=== PATIENT | female | born 1990 | race Caucasian/White ===

== ENCOUNTER → 2018-01-29 | Outpatient (CLI) | payer OTHER ==
[~2018-01-29] MED LIST: AMPI500C9 PO; FERR325T5 PO; MTR600X PO; OXYC-57 PO; PRENTAB26 PO
== END | disposition home or self-care (01) ==
LOC: C.LABSPEC 11:13
PROVIDERS: ATTEND Obstetrics & Gynecology
DX: O34.219 Maternal care for unspecified type scar from previous cesarean delivery (principal)

== ENCOUNTER → 2018-02-05 | Outpatient (CLI) | payer OTHER | END | disposition home or self-care (01) | LOC: C.PAPS 13:44 | PROVIDERS: ATTEND Obstetrics & Gynecology | DX: Z12.4 Encounter for screening for malignant neoplasm of cervix (principal) ==

== ENCOUNTER → 2018-02-05 | Outpatient (CLI) | payer OTHER ==
[2018-02-05 12:27] LABS: BASO % 0.3 %; BASO ABS # 0.03 K/uL (0-0.2); EOS % 8.5 %; HEMATOCRIT 37.3 % (37-47); HEMOGLOBIN 12.8 g/dL (12.0-16.0); IG# 0.04 K/uL (0.00-0.02); LYMPH % 15.2 %; MEAN CORPUSCULAR HEMOGLOBIN 32.2 pg (25-34); MEAN CORPUSCULAR HGB CONC 34.3 g/dl (32-36); MEAN PLATELET VOLUME 10.8 fL (7.4-10.4); MONO % 6.5 %; MONO ABS # 0.77 K/uL (0.11-0.59); NEUT % 69.2 %; NEUT ABS # 8.17 K/uL (1.4-6.5); PLATELET COUNT 243 K/uL (130-400); RED CELL DISTRIBUTION WIDTH CV 12.6 % (11.5-14.5); RED CELL DISTRIBUTION WIDTH SD 42.8 fL (36.4-46.3); WHITE BLOOD COUNT 11.81 K/uL (4.8-10.8)
[2018-02-05 12:45] LABS: ALBUMIN 3.5 gm/dl (3.4-5.0); ALT/SGPT 22 U/L (12-78); AST/SGOT 9 U/L (15-37); BLOOD UREA NITROGEN 9 mg/dl (7-18); CALCIUM 8.6 mg/dl (8.5-10.1); CARBON DIOXIDE 26 mmol/L (21-32); GLUCOSE 86 mg/dl (70-99); POTASSIUM 3.5 mmol/L (3.5-5.1); SODIUM 138 mmol/L (136-145); URIC ACID 2.5 mg/dl (2.6-7.2)
[2018-02-05 12:47] LABS: ALKALINE PHOSPHATASE 50 U/L (45-117); TOTAL PROTEIN 7.1 gm/dl (6.4-8.2)
== END | disposition home or self-care (01) ==
LOC: C.LAB1850 10:58
PROVIDERS: ATTEND Obstetrics & Gynecology
DX: O34.219 Maternal care for unspecified type scar from previous cesarean delivery (principal); Z87.59 Personal history of other complications of pregnancy, childbirth and the puerperium; Z3A.00 Weeks of gestation of pregnancy not specified

== ENCOUNTER → 2018-02-08 | Outpatient (CLI) | payer OTHER | END | disposition home or self-care (01) | LOC: C.LAB1850 13:05 | PROVIDERS: ATTEND Obstetrics & Gynecology | DX: Z87.59 Personal history of other complications of pregnancy, childbirth and the puerperium (principal); O36.1110 Maternal care for Anti-A sensitization, first trimester, not applicable or unspecified ==

== ENCOUNTER → 2018-02-16 | Outpatient (CLI) | payer OTHER | END | disposition home or self-care (01) | LOC: C.LAB1850 12:01 | PROVIDERS: ATTEND Obstetrics & Gynecology | DX: Z34.01 Encounter for supervision of normal first pregnancy, first trimester (principal) ==

== ENCOUNTER 2021-08-30 18:07 | Observation (INO) ==
[2021-08-30 19:38] LABS: Protein Creatinine Ratio Urine 0.1 (0-0.2); Total Protein Urine Random 14.4 mg/dl (0-11.9)
--- NOTE | 2021-08-30 20:38 | History & Physical Report ---
Date of Service August 30, 2021 Assessment & Plan (1) Insulin controlled gestational diabetes mellitus (GDM) during : (2) Maternal care for other isoimmunization, unspecified trimester, not applicable or unspecified: (3) History of HELLP syndrome, currently : Plan: Patient advised of findings thus far. No clear cut diagnosis. Not meeting bp criteria but this could be atypical presentation of preeclampsia/HELLP. Will start 24hr urine. serial bps. repeat labs at 8hr from previous. fhts categ 1. keep npo until next labs back. then if stable may consider feed and then npo after midnight. Addendum: labs stable. repeat in 8hr. can have intermittent monitoring. change to obs status. parameters to complain reviewed. US of GB discussed polyps, no stones. UA pending. currently denies pain. will allow po and then keep npo after MN. check bsg one hr from meal and if >120 dose 50% of her usual nph. Significant time >70min spent by pt bedside, evaluation & coord of care. review of studies. History of Present Illness Chief Complaint: right upper back pain, some ruq pain Primary Care Provider: NO PCP 30yo at 36+wks jose presents to L&D with intermittent ruq and right upper back pain and elevated LFTS in background history of HELLP syndrome with prior . She notes less pain today then yesterday. Same thing happened on monday compared to monday. Had labs ordered that she did on sat, when they returned with elevated lfts, she was brought to L&D for evaluation by my partner and lfts actually improved. Of note BPs have been normal, with no significant proteinuria. Then today was to return to office and LFTs elevated again. Again only intermittent right flank pain, less so in front on right side per pt. No carrillo, no visual change. No worsening swelling. BPs normal. Denies n/v. Moving bowels, using zofran daily to keep from nausea. PNC c/b 1. Prior HELLP syndrome at 39+wks , taking baby ASA daily 2. Prior c/s x 2--for planned rpt c/s at 38wks due to isoimmunization in 3. Isoimmunization in , Anti G and Anti C, following with [facility] dopplers every other wk with [facility], have been normal. 4. GDM on insulin, 20 u NPH qhs, last u/s was aga and nl ac% PNL Rh pos, RI, GBS not done Allergies Allergy/AdvReac Type Severity Reaction Status Date / Time No Known Allergies Allergy Verified 08/30/21 14:53 Home Medications Medication Instructions Recorded Confirmed Type vit no.95-ferrous 1 tab PO QPM 08/27/18 08/30/21 History fumarate 28 mg-folic acid 800 mcg tablet () ondansetron HCl 4 mg tablet 4 mg PO Q6H PRN #20 tab 06/10/21 08/30/21 Rx (Zofran) acetone (urine) test (Ketone Urine #50 ea 07/22/21 08/30/21 Rx Test) blood sugar diagnostic (OneTouch #150 ea 07/22/21 08/30/21 Rx Verio test strips) blood-glucose meter (OneTouch #1 ea 07/22/21 08/30/21 Rx Verio Flex meter) lancets 33 gauge (OneTouch Delica #150 ea 07/22/21 08/30/21 Rx Plus Lancet) pen needle, diabetic 32 gauge x #50 ea 07/29/21 08/30/21 Rx 5/32" (BD Ultra-Fine Pat Pen Needle) aspirin 81 mg chewable tablet 81 mg PO DAILY 08/28/21 08/30/21 History insulin NPH isoph U-100 human 100 20 unit SUBCUT QPM 08/30/21 08/30/21 History unit/mL (3 mL) subcutaneous pen (Novolin N Flexpen) Patient History Medical History History of HELLP syndrome, currently Symptomatic for 1-2 weeks prior to surgery Hx of pre-eclampsia in prior , currently 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 Missed Pre-eclampsia, severe, antepartum Toxemia in (12/26/13) Surgical History H/O section Hx of section Hx of wisdom tooth extraction Family History Mother Kidney disease Grandfather (Maternal) Myocardial infarction Grandmother (Maternal) Ovarian cancer Social History (Updated 08/30/21 @ 18:19 by Munira Billingsley RN) Smoking Status: Never smoker Hx Alcohol Use: No Hx Substance Use: No Preferred Language: Malay Communication Ability: Effective Community Health Consultant Required: No Beliefs That Will Affect Care: None marital status: marital status details: Dominick (29) [phone] Current Living Situation: Spouse Current Living Situation Comment: Lives with , 2 sons and 2 dogs current occupational status: unemployed Other Information That Helps Us Care for You: No Feels Safe at Home: Yes Safety Concerns: Feels Safe At This Time Childhood Exposure to Second-Hand Smoke: No Do you think of yourself as: straight/heterosexual Gender Identity: Female Assistive Devices: None Review of Systems as per Subjective / HPI Physical Exam Constitutional: WD/WN, vitals as above Respiratory: normal respiratory effort, lungs clear to auscultation Cardiovascular: Rate/Rhythm: regular rate and regular rhythm Gastrointestinal (Abdomen): soft gravid nt no ruq tend or epig tenderness. Musculoskeletal: no edema nontender calves Neurologic: grossly normal Psychiatric: A+Ox3, euthymic affect Genitourinary: + CVA tenderness (right ?) OB Exam Monitor Tracing: + external FHT monitor used, + external uterine monitor used (irreg), + category I and + normal FHT variability Results & Data ([facility]) Vital Signs (Past 12 Hours) Vital Signs Temp Pulse Resp BP 08/30/21 19:11 76 131/88 08/30/21 18:32 98.1 F 20 08/30/21 18:12 98.1 F 70 20 119/67 Coding Level of Care Code INT OBSERVATION CARE 70M LVL 3 Diagnoses Insulin controlled gestational diabetes mellitus (GDM) during O24.414 Maternal care for other isoimmunization, unspecified trimester, not applicable or unspecified O36.1990 History of HELLP syndrome, currently O09.299
[2021-08-30 21:09] LABS: Hematocrit (blood only) 36.6 % (37-47); Hemoglobin 12.5 g/dL (12.0-16.0); Mean Corpuscular Hemoglobin 33.2 pg (25-34); Mean Corpuscular Hgb Conc 34.2 g/dL (32-36); Mean Corpuscular Volume 97.3 fL (80-100); Mean Platelet Volume 11.8 fL (7.4-10.4); Platelet Count 123 K/uL (130-400); RDW Coefficient of Variation 12.6 % (11.5-14.5); RDW Standard Deviation 44.3 fL (36.4-46.3); Red Blood Count 3.76 M/uL (4.2-5.4); White Blood Count 10.88 K/uL (4.8-10.8)
--- NOTE | 2021-08-30 21:29 | Ultrasound Report ---
US liver HISTORY: 30 years-old Female ruq pain, at 36wks, elevated lfts acute right upper quadrant abdominal pain COMPARISON: Pelvic ultrasound 08/19/2021 TECHNIQUE: Multiple real-time sonographic images of the abdominal right upper quadrant were obtained assessing grayscale appearance and color flow FINDINGS: The visualized pancreas is unremarkable. The liver is within normal limits measuring 13.6 cm in lengt h. Numerous gallbladder polyps measure up to 5 mm. No shadowing cholelithiasis, wall thickening or pe richolecystic fluid. Sonographic Harmon sign reported as negative. Normal common bile duct, 5 mm. The imaged right kidney is unremarkable without hydronephrosis. IMPRESSION: 1. Numerous gallbladder polyps measure up to 5 mm. 6 month follow-up ultrasound recommended. 2. No cholelithiasis or sonographic evidence of acute cholecystitis. 3. No biliary ductal dilation. ACT 112: Negative or not required by law. The above report was generated using voice recognition software. It may contain grammatical, syntax o r spelling errors. Electronically signed by: Jagjit Spaulding M.D. 08/30/2021 9:28 PM
[2021-08-30 22:09] LABS: Alanine Aminotransferase 111 U/L (12-78); Albumin Level 2.3 gm/dl (3.4-5.0); Amylase 37 U/L (25-115); Aspartate Aminotransferase 76 U/L (15-37); Bilirubin Direct < 0.1 mg/dl (0-0.2); Blood Urea Nitrogen 8 mg/dl (7-18); Calcium 8.2 mg/dl (8.5-10.1); Carbon Dioxide 22 mmol/L (21-32); Chloride 109 mmol/L (98-107); Creatinine Clr Calc Pharmacy 126.8 ml/min; Est GFR (African American) 138.5 ml/min; Est GFR (Non-African American) 119.5 ml/min; Glucose 69 mg/dl (70-99); Lipase 62 U/L (73-393); Potassium 3.7 mmol/L (3.5-5.1); Sodium 138 mmol/L (136-145)
[2021-08-30 22:12] LABS: Albumin Globulin Ratio 0.6 (0.9-2); Alkaline Phosphatase 113 U/L (45-117); Bilirubin,Total 0.5 mg/dl (0.2-1); Globulin 3.8 gm/dl (2.5-4.0); Total Protein 6.1 gm/dl (6.4-8.2)
[2021-08-30 22:15] LABS: Appearance Urine Clear (Clear); Bilirubin Urine Negative (Negative); Blood Urine Negative (Negative); Color Urine Yellow; Glucose Urine UA Negative (Negative); Ketones Urine Negative (Negative); Leukocyte Esterase Urine Negative (Negative); Nitrite Urine Negative (Negative); Protein Urine Negative (Negative); Specific Gravity Urine 1.015 (1.000-1.030); Urobilinogen Urine Negative (Negative)
--- NOTE | 2021-08-30 22:22 | Obstetrical Progress Note ---
Date of Service August 30, 2021 Assessment & Plan (1) Right upper quadrant abdominal pain: (2) Insulin controlled gestational diabetes mellitus (GDM) during : (3) Maternal care for other isoimmunization, unspecified trimester, not applicable or unspecified: (4) History of HELLP syndrome, currently : (5) Previous delivery affecting , antepartum: (6) 36 weeks gestation of : Plan: nst reactive Subjective neglected to code for nst. Results & Data ([facility]) Vital Signs (Past 12 Hours) Vital Signs Temp Pulse Resp BP 08/30/21 19:11 76 131/88 08/30/21 18:32 98.1 F 20 08/30/21 18:12 98.1 F 70 20 119/67 Diagnostic Findings nst reactive. no labor. PG Care Time/CCT Total # of Minutes Spent Total Time Spent with Patient: Total time spent is greater than 50% in coordination of care (as documented) at patient's floor/unit and/or counseling patient: Coding Level of Care Code None Diagnoses Right upper quadrant abdominal pain R10.11 Insulin controlled gestational diabetes mellitus (GDM) during O24.414 Maternal care for other isoimmunization, unspecified trimester, not applicable or unspecified O36.1990 History of HELLP syndrome, currently O09.299 Previous delivery affecting , antepartum O34.219 36 weeks gestation of Z3A.36 CPT Codes Misx Procedure Codes - 58898 NST: 98227 NST ([id number]) WINDOW CLEANER Miscellaneous Codes Misx Procedure Codes 71848 NST
[2021-08-30] MEDS ORDERED: CARBOHYDRATES FOR HYPOGLYCEMIA PO PRN (22:45)
[2021-08-30] MEDS ORDERED: GLUCAGON FOR INJ 1 MG VIAL IM PRN (22:45)
[2021-08-30] MEDS ORDERED: GLUCOSE 10 TABS/TUBE PO PRN (22:45)
[2021-08-30] MEDS ORDERED: DEXTROSE 50% 50 ML SYRINGE IV PRN (22:45)
[2021-08-30] MEDS ORDERED: GLUCOSE 40% GEL 15 GM TUBE PO PRN (22:45)
[2021-08-31 05:53] LABS: Hematocrit (blood only) 36.3 % (37-47); Hemoglobin 12.5 g/dL (12.0-16.0); Mean Corpuscular Hemoglobin 33.5 pg (25-34); Mean Corpuscular Hgb Conc 34.4 g/dL (32-36); Mean Corpuscular Volume 97.3 fL (80-100); Mean Platelet Volume 12.2 fL (7.4-10.4); Platelet Count 113 K/uL (130-400); Platelet Estimate Decreased (Normal); RDW Coefficient of Variation 12.6 % (11.5-14.5); RDW Standard Deviation 44.8 fL (36.4-46.3); Red Blood Count 3.73 M/uL (4.2-5.4); White Blood Count 9.99 K/uL (4.8-10.8)
[2021-08-31 06:01] LABS: Albumin Level 2.2 gm/dl (3.4-5.0); BUN Creatinine Ratio 14.1 (10-20); Bilirubin Direct 0.1 mg/dl (0-0.2); Calcium 8.2 mg/dl (8.5-10.1); Creatinine Clr Calc Pharmacy 133.1 ml/min; Est GFR (African American) 140.8 ml/min; Est GFR (Non-African American) 121.5 ml/min; Potassium 3.7 mmol/L (3.5-5.1)
[2021-08-31 06:04] LABS: Albumin Globulin Ratio 0.6 (0.9-2); Bilirubin,Total 0.5 mg/dl (0.2-1); Globulin 3.7 gm/dl (2.5-4.0); Total Protein 5.9 gm/dl (6.4-8.2)
[2021-08-31] MEDS ORDERED: oxyCODONE/ACETAMINOPHEN 5mg/325mg TAB PO STA (06:58)
--- NOTE | 2021-08-31 07:04 | Obstetrical Progress Note ---
Date of Service August 31, 2021 Assessment & Plan (1) 36 weeks gestation of : (2) Right upper quadrant abdominal pain: (3) Insulin controlled gestational diabetes mellitus (GDM) during : (4) Maternal care for other isoimmunization, unspecified trimester, not applicable or unspecified: (5) History of HELLP syndrome, currently : (6) Previous delivery affecting , antepartum: Plan: pt with new onset pain, she will try dose of percocet to help. labs reviewed, plts decreased. lfts slightly higher. bps normal. will keep npo. bsg this am is normal. can try some warm heat to back. will likely need to d/w mfm her case. Subjective pt slept through night and woke up about 5am with the pain she has been having. its on her back to the right of spine, at level of scapulae. does not change with movement. not tender to touch, is deep. no carrillo or visual change. no ruq or epig pain. no n/v. Review of Systems Constitutional: as per Subjective / HPI Physical Exam Constitutional: WD/WN, vitals as above Musculoskeletal: area of back is where pain is noted in hpi Genitourinary: OB Exam Monitor Tracing: + external FHT monitor used, + external uterine monitor used (no ctx), + category I and + normal FHT variability Results & Data ([facility]) Vital Signs (Past 12 Hours) Vital Signs Temp Pulse Resp BP 08/31/21 03:49 97.9 F 67 16 98/60 L 08/31/21 00:34 98.1 F 71 18 121/67 08/30/21 19:11 76 131/88 PG Care Time/CCT Total # of Minutes Spent Total Time Spent with Patient: Total time spent is greater than 50% in coordination of care (as documented) at patient's floor/unit and/or counseling patient: Coding Level of Care Code None Diagnoses 36 weeks gestation of Z3A.36 Right upper quadrant abdominal pain R10.11 Insulin controlled gestational diabetes mellitus (GDM) during O24.414 Maternal care for other isoimmunization, unspecified trimester, not applicable or unspecified O36.1990 History of HELLP syndrome, currently O09.299 Previous delivery affecting , antepartum O34.219
--- NOTE | 2021-08-31 08:57 | Obstetrical Progress Note ---
Date of Service August 31, 2021 Assessment & Plan (1) 36 weeks gestation of : (2) Elevated LFTs: (3) Insulin controlled gestational diabetes mellitus (GDM) during : (4) History of HELLP syndrome, currently : (5) Maternal care for other isoimmunization, unspecified trimester, not applicable or unspecified: Plan: Called and spoke to [facility] fellow Molly Covarrubiasrosasalima. reviewed course and findings thus far. they do not feel this an atypical presentation of preeclampsia at this point. BPs normal, urine protein normal. they rec checking covid test as they have seen these type of abnl in that setting. also rec GI consult to just see if they think at all this a presentation of hepatitis. if GI eval not leaning in that direction, then may lean toward an ob cause and can offer steroids, whilst monitoring labs and her overall picture. all d/w oncoming md and with patient. she verbalized understanding. >30min spent, bedside, review of findings, coord of care, contacting [facility]. Subjective pt resting. says the percocet helped her pain as she did fall asleep. she says was up all night due to the pain. no other sx. reviewed discussion with tootie [facility], Santino Coombs. Review of Systems Constitutional: as per Subjective / HPI Physical Exam Constitutional: WD/WN, vitals as above Genitourinary: OB Exam Monitor Tracing: + external FHT monitor used, + external uterine monitor used (no ctx), + category I (nst reactive) and + normal FHT variability Results & Data ([facility]) Vital Signs (Past 12 Hours) Vital Signs Temp Pulse Resp BP 08/31/21 07:17 98.1 F 73 20 120/56 L 08/31/21 03:49 97.9 F 67 16 98/60 L 08/31/21 00:34 98.1 F 71 18 121/67 PG Care Time/CCT Total # of Minutes Spent Total Time Spent with Patient: Total time spent is greater than 50% in coordination of care (as documented) at patient's floor/unit and/or counseling patient: Coding Level of Care Code 01117 Subseq Obs Care Lvl 2 Diagnoses 36 weeks gestation of Z3A.36 Elevated LFTs R79.89 Insulin controlled gestational diabetes mellitus (GDM) during O24.414 History of HELLP syndrome, currently O09.299 Maternal care for other isoimmunization, unspecified trimester, not applicable or unspecified O36.1990 CPT Codes Misx Procedure Codes - 57188 NST: 67250 NST ([id number]) DIRECTOR ERP Miscellaneous Codes Misx Procedure Codes 73394 NST
[2021-08-31] MEDS ORDERED: LACTATED RINGER'S 1,000 ML IV SCH (09:30)
[2021-08-31] MEDS ORDERED: DEXTROSE 5% 1,000 ML IV SCH (10:15)
--- NOTE | 2021-08-31 11:02 | Gastrointestinal Consultation ---
Date of Consultation August 31, 2021 Assessment & Plan (1) Elevated LFTs: (2) Right upper quadrant abdominal pain: (3) History of HELLP syndrome, currently : From a GI perspective, there are no acute laboratory or imaging studies to support a diagnosis of an acute gallbladder or hepatitis concern. Hep A, B, C studies are ordered and pending. COVID19 testing is negative. I agree with the plan of care in place by the obstetrical team. I would advise continued monitoring of LFTs, platelets, blood pressure, & urine. Patient is not experiencing any heartburn, reflux, nausea, or vomiting at present so I do not know that there would be a benefit of a trial of PPI therapy, however if symptoms worsen, could consider adding that supportively. Did discuss with patient a non-emergent, outpatient surgical evaluation post- to discuss possible elective cholecystectomy given numerous gallbladder polyps noted on ultrasound imaging. Supervising Physician Co-Signing Physician Notes Agree with MISTI Tapia as above Abd: Soft, gravid, Tender RUQ, +BS No evidence of acute viral etiology, though viral serologies pending Most likely HELLP syndrome, and therefore would recommend transfer to [facility] with [facility] History of Present Illness Attending Physician: Irina Cook MD, FACOG History of Present Illness Patient is a 30 yo female who is presently 36 weeks . She presented to L&D with complaints of RUQ and right upper back pain that had been ongoing intermittently for several days. She has a history of HELLP syndrome with her previous and recognized similar symptoms. She is a gestational diabetic and has been monitoring her blood sugars and utilizing insulin. Her current platelets are 113. She had LFTs that show a mild elevation. AST of 98 and ALT of 134. An abdominal US indicated gallbladder polyps, but no evidence of an acute gallbladder, hepatomegaly, hepatitis, or other acute liver issue. Hep A, B, C studies are pending. She denies any history of liver disease personally or in the family. She denies recent febrile illness, viral illnesses, Tylenol use, and is COVID negative. She denies jaundice or scleral icterus. [facility]aternal [facility] was consulted given concerns for an atypical presentation of HELLP Syndrome. They advised a GI consult to assess for hepatitis. Patient reports some improvement temporarily of her RUQ pain. She denies nausea, vomiting, worsening heartburn or reflux, or changes in her bowel pattern. Allergies Allergy/AdvReac Type Severity Reaction Status Date / Time No Known Allergies Allergy Verified 08/30/21 14:53 Home Medications Medication Instructions Recorded Confirmed Type vit no.95-ferrous 1 tab PO QPM 08/27/18 08/30/21 History fumarate 28 mg-folic acid 800 mcg tablet () ondansetron HCl 4 mg tablet 4 mg PO Q6H PRN #20 tab 06/10/21 08/30/21 Rx (Zofran) acetone (urine) test (Ketone Urine #50 ea 07/22/21 08/30/21 Rx Test) blood sugar diagnostic (OneTouch #150 ea 07/22/21 08/30/21 Rx Verio test strips) blood-glucose meter (OneTouch #1 ea 07/22/21 08/30/21 Rx Verio Flex meter) lancets 33 gauge (OneTouch Delica #150 ea 07/22/21 08/30/21 Rx Plus Lancet) pen needle, diabetic 32 gauge x #50 ea 07/29/21 08/30/21 Rx 5/32" (BD Ultra-Fine Pat Pen Needle) aspirin 81 mg chewable tablet 81 mg PO DAILY 08/28/21 08/30/21 History insulin NPH isoph U-100 human 100 20 unit SUBCUT QPM 08/30/21 08/30/21 History unit/mL (3 mL) subcutaneous pen (Novolin N Flexpen) Patient History Medical History (Updated 08/31/21 @ 08:50 by Irina Cook MD, FACOG) History of HELLP syndrome, currently Symptomatic for 1-2 weeks prior to surgery Hx of pre-eclampsia in prior , currently 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 Missed Pre-eclampsia, severe, antepartum Toxemia in (12/26/13) Surgical History H/O section Hx of section Hx of wisdom tooth extraction Family History Mother Kidney disease Grandfather (Maternal) Myocardial infarction Grandmother (Maternal) Ovarian cancer Social History (Updated 08/30/21 @ 18:19 by Munira Billingsley RN) Smoking Status: Never smoker Hx Alcohol Use: No Hx Substance Use: No Preferred Language: Malawian Communication Ability: Effective Press Operator Heavy Duty Required: No Beliefs That Will Affect Care: None marital status: marital status details: Dominick (29) [phone] Current Living Situation: Spouse Current Living Situation Comment: Lives with , 2 sons and 2 dogs current occupational status: unemployed Feels Safe at Home: Yes Childhood Exposure to Second-Hand Smoke: No Do you think of yourself as: straight/heterosexual Gender Identity: Female Assistive Devices: None Review of Systems Constitutional: no fever and no chills Respiratory: no cough and no dyspnea Cardiovascular: no chest pain Gastrointestinal: no abdominal pain (RUQ pain improved), no bloating, no heartburn, no nausea, no coffee ground emesis, no hematemesis, no change in bowel habits, no change in stools, no constipation, no diarrhea/loose stools, no blood in stools and no melena Integumentary: no yellowing of the skin Psychiatric: no problem reported Physical Exam Constitutional: WD/WN, vitals as above Eyes: + anicteric sclerae Respiratory: normal respiratory effort, lungs clear to auscultation Cardiovascular: RRR, no murmur, no edema Extremities: no edema Gastrointestinal (Abdomen): no palpable hepatosplenomegaly; normal bowel sounds noted; no abdominal tenderness appreciated Musculoskeletal: Head/Neck/Chest: normocephalic Skin: no rashes, warm and dry no jaundice Psychiatric: A+Ox3, euthymic affect Results & Data ([facility]) Vital Signs (Past 12 Hours) Vital Signs Temp Pulse Resp BP 08/31/21 07:17 36.7 C 73 20 120/56 L 08/31/21 03:49 36.6 C 67 16 98/60 L 08/31/21 00:34 36.7 C 71 18 121/67 PG Care Time/CCT Total # of Minutes Spent Total Time Spent with Patient: Total time spent is greater than 50% in coordination of care (as documented) at patient's floor/unit and/or counseling patient: Coding Level of Care Code 94985 Inpt Consult Level 4 Diagnoses Elevated LFTs R79.89 Right upper quadrant abdominal pain R10.11 History of HELLP syndrome, currently O09.299
[2021-08-31 11:36] LABS: Hematocrit (blood only) 38.8 % (37-47); Hemoglobin 13.2 g/dL (12.0-16.0); Mean Corpuscular Hemoglobin 33.3 pg (25-34); Mean Platelet Volume 11.8 fL (7.4-10.4); Platelet Count 115 K/uL (130-400); RDW Coefficient of Variation 12.6 % (11.5-14.5); RDW Standard Deviation 45.4 fL (36.4-46.3); Red Blood Count 3.96 M/uL (4.2-5.4); White Blood Count 11.36 K/uL (4.8-10.8)
[2021-08-31 11:58] LABS: Albumin Level 2.3 gm/dl (3.4-5.0); BUN Creatinine Ratio 10.5 (10-20); Calcium 8.4 mg/dl (8.5-10.1); Creatinine Clr Calc Pharmacy 128.8 ml/min; Est GFR (African American) 139.3 ml/min; Est GFR (Non-African American) 120.2 ml/min; INR 0.9 (0.9-1.1); Potassium 3.8 mmol/L (3.5-5.1); Prothrombin Time 9.3 Seconds (9.0-12.0)
[2021-08-31 11:59] LABS: Bilirubin Direct 0.2 mg/dl (0-0.2)
[2021-08-31 12:00] LABS: Partial Thromboplastin Ratio 1.1; Partial Thromboplastin Time 27.7 Seconds (21.0-31.0)
[2021-08-31 12:01] LABS: Albumin Globulin Ratio 0.6 (0.9-2); Bilirubin,Total 0.6 mg/dl (0.2-1); Globulin 4.1 gm/dl (2.5-4.0); Total Protein 6.4 gm/dl (6.4-8.2)
--- NOTE | 2021-08-31 13:05 | Obstetrical Progress Note ---
Date of Service August 31, 2021 Assessment & Plan (1) Elevated LFTs: (2) 36 weeks gestation of : (3) Right upper quadrant abdominal pain: (4) Insulin controlled gestational diabetes mellitus (GDM) during : (5) Maternal care for other isoimmunization, unspecified trimester, not applicable or unspecified: (6) History of HELLP syndrome, currently : (7) Previous delivery affecting , antepartum: Plan: Lfts are increasing, but all other lab values are stable. Clinically stable as well. BPs not elevated. Discussed the situation again with JUDSON Selby at [facility], attending. She still does not believe there is an indication for delivery, cannot call HELLP with just the LFTs elevated and all else stable. Discussed that covid pcr was negative. Seen by GI and did not think it was a hepatitis picture, more likely Hellp, hepatitis panel pending. Several concerns about her remaining at our facility--blood product availability, only 2 dose packs of plts, unsure about when she will require delivery, possiblity of rapid deterioration of situation, uncertainty of diagnosis. Dr. Gallagher notes they would be happy to accept her in transfer given the uncertainty of the situation. I believe that is in the patient's best interest at this point. Discussed the situation with the patient and she is agreeable and understands. If it turns out not to be hellp and clinical situation improves, may come back. Patient is accepted by Dr. Giraldo and has a bed. [facility] at our hospital currently does not have ambulance service available to send the patient. We are working on getting her an ambulance from [facility] . If unavailable, may need to fly. Admission and Anticipated Discharge Date Admission Date: August 30, 2021 Subjective Patient is resting in bed. She notes dull pain in the RUQ/back. It is constant. Less painful than overnight. Slightly worse with movement. She denies carrillo, ruq pain, increased swelling. Notes some slight nausea but npo. Notes good fm. Lfts are elevated further this late am from 5am. plts are stable. reactive nst. Feeling good fm. Physical Exam Constitutional: WD/WN, vitals as above Gastrointestinal (Abdomen): soft, nt, nd, no ruq pain Psychiatric: A+Ox3, euthymic affect Results & Data ([facility]) Vital Signs (Past 12 Hours) Vital Signs Temp Pulse Resp BP 08/31/21 12:02 37 C 66 20 123/64 08/31/21 07:17 36.7 C 73 20 120/56 L 08/31/21 03:49 36.6 C 67 16 98/60 L PG Care Time/CCT Total # of Minutes Spent Total Time Spent with Patient: Total time spent is greater than 50% in coordination of care (as documented) at patient's floor/unit and/or counseling patient: Coding Level of Care Code D/C DAY MANAGEMENT >30 MINS Diagnoses Elevated LFTs R79.89 36 weeks gestation of Z3A.36 Right upper quadrant abdominal pain R10.11 Insulin controlled gestational diabetes mellitus (GDM) during O24.414 Maternal care for other isoimmunization, unspecified trimester, not applicable or unspecified O36.1990 History of HELLP syndrome, currently O09.299 Previous delivery affecting , antepartum O34.219
[2021-08-31] MEDS ORDERED: INSULIN HUMAN NPH SC SCH (21:00)
[2021-09-01 02:21] LABS: Hepatitis A Antibody IgM NON-REACTIVE (NON-REACTIVE); Hepatitis B Core Antibody IgM NON-REACTIVE (NON-REACTIVE)
== END 2021-08-31 15:21 | disposition short-term general hospital (02) ==
LOC: OPB 18:07 → 4S1 18:07

== ENCOUNTER 2024-02-02 11:15 | Inpatient (IN) ==
[2024-02-02] MEDS ORDERED: OXYTOCIN 30 UNITS/NSS 30 UNITS/500 ML BAG IV PRN (11:30)
[2024-02-02] MEDS ORDERED: LIDOCAINE 1% LOCAL 20 ML VIAL INFIL PRN (11:30)
--- NOTE | 2024-02-02 11:30 | History & Physical Report ---
Date of Service February 02, 2024 Assessment & Plan (1) Rubella non-immune status, antepartum: (2) Previous delivery affecting , antepartum: Plan: RCS today. (3) History of HELLP syndrome, currently : (4) Gestational diabetes mellitus (GDM) affecting , antepartum: Plan 33 y/o at 36w 6 d here for a c section due hx of help syndrome x2 with presentation of abnormal labs Admit to L&D monitoring Category 1 NPO, Labs To OR for History of Present Illness Primary Care Provider: Karmen Baker MD 33 y/o at 36w 6 d. Here for section. Patient had hx of HELLP syndrome x2. Complications with this include previous c section x3, Anti C, G, on current and GDM on insulin. Has been attending OB appointments regularly. Currently taking no medications. GBS negative , Rubella equivocal, BTG: A negative Contractions: none. Fluid or Blood loss: none Movement: active FHR baseline 130, moderate variability, accelerations present, decelerations absent Lab Results OB Labs: Blood Type A Negative 07/17/23 Antibody Screen POSITIVE A 12/05/23 Hemoglobin 12.6 g/dl (12.0-16.0) 12/05/23 Hematocrit 37.1 % (37.0-47.0) 12/05/23 Mean Corpuscular Volume 94.3 fL (80.0-100.0) 07/17/23 Platelet Count 215 K/uL (130-400) 07/17/23 Rubella IgG Antibody Equivocal (Immune) L 07/17/23 Rapid Plasma Reagin Nonreactive (Nonreactive) 07/17/23 Hepatitis B Surface Antigen Neg (Neg) 08/31/21 Hepatitis B Surface Antigen. NON-REACTIVE (NON-REACTIVE) 07/17/23 Hepatitis C Antibody (EIA) NON-REACTIVE (NON-REACTIVE) 07/17/23 HIV (1&2) Ab and P24 Ag, 4th Gener Neg (Neg) 02/10/21 HIV (1&2) Ag and Ab Confirmation NON-REACTIVE (NON-REACTIVE) 07/17/23 Glucose 1 Hour 50 gm Load 139 mg/dl (70-130) H 07/08/21 OB Optional Labs: Chlamydia trachomatis RNA Not Detected (NotDetected) 07/17/23 Neisseria gonorrhoeae RNA Not Detected (NotDetected) 07/17/23 Labs Reviewed: Declines genetics--mln declined afp Allergies Allergy/AdvReac Type Severity Reaction Status Date / Time No Known Allergies Allergy Verified 02/02/24 11:39 Home Medications Medication Instructions Recorded Confirmed Type [id number] 1 tab PO QAM 07/10/23 02/02/24 History [] pen needle, diabetic 32 gauge x #50 ea 08/25/23 01/29/24 Rx " (BD Ultra-Fine Pat Pen Needle) aspirin 81 mg tablet,delayed 81 mg PO DAILY 11/02/23 02/02/24 History release breast pump #1 ea 12/19/23 01/29/24 Rx ondansetron HCl 4 mg tablet 4 mg PO Q8H PRN nausea and 01/03/24 02/02/24 Rx vomiting #20 tabs diphenhydramine HCl 25 mg capsule 12.5 mg PO HS PRN Sleep 01/30/24 02/02/24 History (Unisom SleepMinis) Colace 1 tab PO DAILY 02/02/24 02/02/24 History insulin NPH isoph U-100 human 100 12 unit subcut QPM 02/02/24 02/02/24 History unit/mL (3 mL) subcutaneous pen (Novolin N FlexPen) Patient History Medical History 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, 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, G, current (OB following with monthly titers as well as MCA dopplers and NSTs); currently following with Medicine Gestational diabetes mellitus (GDM) affecting , antepartum HELLP syndrome (HELLP), unspecified trimester x2 Baseline 24 hr urine and labs WNL 1st at 39 weeks 3rd atypical presentation 36 weeks and 5 days per OB records (2020) Hx of pre-eclampsia in prior , currently With 1st per OB records Surgical History S/P dilation and curettage H/O section x3 Hx of wisdom tooth extraction Family History Mother Kidney disease Grandfather (Maternal) Myocardial infarction Grandmother (Maternal) Ovarian cancer Other No family history of adverse response to anesthesia Denies family history of Prostate cancer Breast cancer Colorectal cancer Social History Smoking Status: Never smoker Second Hand Exposure: No; Do You Dip or Chew Tobacco: No; Hx Alcohol Use: No Hx Substance Use: No Preferred Language: Chadian Communication Ability: Effective Undergraduate Internship Required: No Beliefs That Will Affect Care: None marital status: marital status details: Dominick Cortes [phone] Current Living Situation: Spouse and Family current occupational status: unemployed current occupation: homemaker Feels Safe at Home: Yes Safety Concerns: Feels Safe At This Time Childhood Exposure to Second-Hand Smoke: No Do you think of yourself as: straight/heterosexual Gender Identity: Female Assistive Devices: Contacts and Glasses Review of Systems All systems reviewed & are unremarkable except as noted in HPI & below Physical Exam Physical Exam: General: patient resting comfortably, NAD, non-toxic in appearance, AA&O x 4, answers questions appropriately. Skin: warm, dry, intact HEENT: NC/AT, anicteric sclera, conjunctiva without injection, moist mucus membranes Heart: +S1/S2, regular, no m/r/g Lungs: equal air entry bilaterally, no rales/rhonchi/wheezes Abd: +BS, soft, NT/ND, gravid uterus Ext: warm, no clubbing/cyanosis or edema Neuro: nonfocal, patient AA&O x 4, speech intact, no facial droop, moving all extremities on command. Results & Data Laboratory Results Laboratory Results - last 24 hr 02/02/24 11:39 WBC 10.17 RBC 3.84 L Hgb 12.4 Hct 36.1 L MCV 94.0 MCH 32.3 MCHC 34.3 RDW Std Deviation 43.4 RDW Coeff of Cecelia 12.7 Plt Count 129 L MPV 12.6 H Immature Gran % (Auto) 0.6 Neut % (Auto) 73.9 Lymph % (Auto) 18.4 [place] % (Auto) 6.6 Eos % (Auto) 0.2 Baso % (Auto) 0.3 Neut # (Auto) 7.52 H Lymph # (Auto) 1.87 [place] # (Auto) 0.67 H Eos # (Auto) 0.02 Baso # (Auto) 0.03 Immature Gran # (Auto) 0.06 Sodium 135 L Potassium 3.8 Chloride 106 Carbon Dioxide 22 Anion Gap 7 BUN 13 Creatinine 0.70 Est Cr Clr Drug Dosing Not Reportable Est GFR ( Amer) 131.0 Est GFR (Non-Af Amer) 113.0 BUN/Creatinine Ratio 18.6 Glucose 90 Calcium 8.9 Total Bilirubin 0.4 Direct Bilirubin 0.1 AST 49 H ALT 70 H Alkaline Phosphatase 102 Total Protein 6.0 Albumin 3.2 L Globulin 2.8 Albumin/Globulin Ratio 1.1 Blood Type A Negative Antibody Screen POSITIVE A Antibody Identification Pending Antibody ID Comment Pending Crossmatch See Detail Supervising Physician Co-Signing Physician Notes Resident Physician Supervision Note: I interviewed and examined the patient. Discussed with Dr. Pollock and agree with findings and plan as documented in the note. Any exceptions or clarifications are listed here: Patient seen in office yesterday for NST, which was reactive, and found to have mild RUQ aching. She was sent for outpatient labs and found to have mildly elevated LFT's and mildly decreased Plts (111). She was asked to come to L&D today as this appears to represent early recurrence of her HELLP syndrome, therefore would recommend delivery. At this time her Plts have improved slightly to 129 and LFTs remain mildly abnormal. She had a TRISTAN this morning that resolved with tylenol, and only mild RUQ ache which persists. Good FM, no Cts/LOF/VB. also c/b +antibodies which blood bank is aware of and matched blood is available per a phone call to the blood bank today. GDM on insulin, will manage glucose while here. Documented By: Irene Pang MD, FACOG Resident Activity Tracking Resident Involvement: Resident Care Provided Care Provided: OB Delivery
[2024-02-02] MEDS ORDERED: SODIUM CHLORIDE 0.9% 250 ML IV PRN (11:45)
[2024-02-02 11:57] LABS: Basophils # (auto) 0.03 K/uL (0.00-0.20); Basophils % (auto) 0.3 %; Eosinophils # (auto) 0.02 K/uL (0.00-0.50); Eosinophils % (auto) 0.2 %; Hematocrit (blood only) 36.1 % (37.0-47.0); Hemoglobin 12.4 g/dl (12.0-16.0); Immature Granulocytes # (auto) 0.06 K/uL (0.01-0.20); Immature Granulocytes % (auto) 0.6 %; Lymphocytes # (auto) 1.87 K/uL (1.20-3.40); Lymphocytes % (auto) 18.4 %; Mean Corpuscular Hemoglobin 32.3 pg (25.0-34.0); Mean Corpuscular Hgb Conc 34.3 g/dL (32.0-36.0); Mean Platelet Volume 12.6 fL (9.4-12.4); Monocytes # (auto) 0.67 K/uL (0.11-0.59); Monocytes % (auto) 6.6 %; Neutrophils # (auto) 7.52 K/uL (1.40-6.50); Neutrophils % (auto) 73.9 %; Platelet Count 129 K/uL (130-400); RDW Coefficient of Variation 12.7 % (11.5-14.5); RDW Standard Deviation 43.4 fL (36.4-46.3); Red Blood Count 3.84 M/uL (4.20-5.40); White Blood Count 10.17 K/ul (4.8-10.8)
[2024-02-02 12:13] LABS: Alanine Aminotransferase 70 U/L (7-52); Albumin Globulin Ratio 1.1 (0.9-2); Albumin Level 3.2 gm/dl (3.4-5.0); Alkaline Phosphatase 102 U/L (34-104); Anion Gap 7 (3-11); Aspartate Aminotransferase 49 U/L (13-39); BUN Creatinine Ratio 18.6 (10-20); Bilirubin Direct 0.1 mg/dl (0-0.2); Bilirubin,Total 0.4 mg/dl (0.2-1.0); Blood Urea Nitrogen 13 mg/dl (6-23); Calcium 8.9 mg/dl (8.6-10.3); Carbon Dioxide 22 mmol/L (21-32); Chloride 106 mmol/L (98-107); Globulin 2.8 gm/dl (2.5-4.0); Glucose 90 mg/dl (70-99(Fasting)); Potassium 3.8 mmol/L (3.5-5.1); Sodium 135 mmol/L (136-145)
[2024-02-02] MEDS: LACTATED RINGER'S 1,000 ML IV PRN (12:30)
[2024-02-02] MEDS: CITRIC ACID/SODIUM CITRATE 15 ML UDC ONE (13:28)
[2024-02-02] MEDS ORDERED: ONDANSETRON INJ 2 MG/ML 2 ML VIAL ONE (13:28)
[2024-02-02] MEDS ORDERED: fentaNYL citrate PF 100 MCG/2 ML VIAL ONE (13:28)
[2024-02-02] MEDS ORDERED: KETOROLAC 30 MG/ML VIAL ONE (13:28)
[2024-02-02] MEDS ORDERED: PHENYLEPHRINE HCL 10 MG/ML VIAL ONE (13:28)
[2024-02-02] MEDS ORDERED: MoRPHine SULFATE PF 1 MG/ML 10 ML AMP/VIAL ONE (13:29)
[2024-02-02] MEDS ORDERED: CITRIC ACID/SODIUM CITRATE 15 ML UDC PO SCH (13:30)
[2024-02-02] MEDS ORDERED: OXYTOCIN 10 UNITS/ML VIAL ONE ×2 (13:30→13:31)
[2024-02-02] MEDS: ceFAZolin 2000MG 2,000 MG/15 ML SYR IV SCH (14:17)
[2024-02-02] MEDS ORDERED: CARBOPROST TROMETHAMINE 250 MCG/ML AMPUL ONE (15:10)
--- NOTE | 2024-02-02 15:33 | Operative Report ---
PG Post Operative Report Pre & Post Diagnosis Operation Date: 02/02/24 13:10 Recurrent HELLP syndrome SIUP @ 36w6d Prior x3 I identified the patient and participated in the time-out.: Yes Procedure Operation Date: 02/02/24 13:10 Repeat Low Transverse Section Surgeon Irene Pang MD Wood Heel Fitter Machine Prieto Estimated Blood Loss 600 Findings Consistent with Post-Op Diagnosis Specimens Placenta, cord blood Anesthesia Type Spinal Complications none Disposition Accompanied Patient To Recovery: Yes Disposition: L&D Description of Procedure The patient was placed operating table in the supine position with a leftward tilt. She was prepped and draped in standard sterile fashion. The anesthetic was tested and found to be adequate. A time-out was held, identifying correct patient, procedure, positioning and preoperative antibiotics. There were no concerns. A Pfannenstiel skin incision was made, excising the prior scar, with a knife and taken down to the underlying layer of fascia. The fascia was incised in the midline with the knife and taken out laterally with scissors. The superior edge of the fascial incision was grasped, elevated and dissected off the underlying rectus both superiorly and inferiorly. The muscles were bluntly in the midline. The peritoneum was entered bluntly. The incision was then stretched. An was placed. The bladder retractor was placed. The vesicouterine peritoneum was identified, entered with scissors and taken out laterally with scissors. The bladder flap was created digitally. Beneath the vesicouterine peritoneum, the uterus was extremely thin with areas completely lacking myometrium / where amnion was the next layer below the bladder flap. Note: this was discussed later in the OR with patient, who was advised that this makes future more risky and indicates for delivery should one occur. She declined tubal pre-op but notes is planning vasectomy. A hysterotomy incision was created bluntly in the lower uterine segment, entry being accomplished with the tar distributor operator's finger extending the existing myometrial window. Clear amniotic fluid was encountered. The tar distributor operator's hand was used to elevate the head to the hysterotomy. The head was delivered using mild fundal pressure, and the shoulders and body followed without difficulty. The cord was clamped and cut and the was then handed off to the awaiting adult probation officer. Cord blood was obtained. The placenta was Manually extracted. The uterus was cleared of all clot and debris with moistened laparotomy sponges. The hysterotomy incision was repaired in two layers, the first in a running locked layer, the second in an imbricating layer. Paulie was applied over the incision. The was removed. The gutters were cleared of clot and debris. A final inspection of the hysterotomy revealed good hemostasis. The rectus muscles were allowed to reapproximate naturally. The fascia was then reapproximated with 1 Vicryl in a running nonlocked manner. The fascia was examined and found to be free of defect following closure. The subcutaneous tissue was copiously irrigated and reapproximated with 0-chromic, then the skin edges were closed with 4-0 monocryl in a subcuticular fashion. A dermabond dressing was applied. The hernandez was found to be draining clear yellow urine at completion of the procedure. I attest to the content of the Intraoperative Record and any orders documented therein. Any exceptions are noted below. I attest to the content of the Intraoperative Record and any orders documented therein. Any exceptions are noted below. OB Procedure Charges 86010
[2024-02-02] MEDS ORDERED: HYDROCORTISONE ACETATE 25 MG SUPP PR PRN (15:36)
[2024-02-02] MEDS ORDERED: BENZOCAINE 20% SPRY 85 APPLN/85 GM CAN EXT PRN (15:36)
[2024-02-02] MEDS ORDERED: MAGNESIUM HYDROXIDE SUSP 30 ML UDC PO PRN (15:36)
[2024-02-02] MEDS ORDERED: PROMETHAZINE HCL 25 MG in SODIUM CHLORIDE 0.9% 50 ML IV PRN (15:36)
[2024-02-02] MEDS ORDERED: SENNA 8.6 MG TAB PO PRN (15:36)
[2024-02-02] MEDS ORDERED: ONDANSETRON INJ 2 MG/ML 2 ML VIAL IV PRN ×2 (15:36→15:40)
[2024-02-02] MEDS ORDERED: KETOROLAC 30 MG/ML VIAL IV PRN (15:36)
[2024-02-02] MEDS ORDERED: diphenhydrAMINE 50 MG/ML VIAL IV PRN ×2 (15:36→15:40)
[2024-02-02] MEDS ORDERED: NALBUPHINE HCL 5 MG in SYRINGE 0 ML IV PRN (15:40)
[2024-02-02] MEDS ORDERED: NALOXONE HCL 0.4 MG/1 ML VIAL/CARP IV PRN (15:40)
[2024-02-02] MEDS ORDERED: diphenhydrAMINE Capsule 25 MG CAP PO PRN (15:40)
[2024-02-02] MEDS ORDERED: ePHEDrine sulfate 50 MG/ML AMP IV PRN (15:40)
[2024-02-02] MEDS ORDERED: NALOXONE HCL 1 MG in SODIUM CHLORIDE 0.9% 1,000 ML IV PRN (15:40)
[2024-02-02] MEDS ORDERED: NALOXONE HCL 0.08 MG in SYRINGE 1.8 ML IV PRN (15:40)
[2024-02-02] MEDS ORDERED: PROMETHAZINE HCL 6.25 MG in SODIUM CHLORIDE 0.9% 50 ML IV PRN (15:40)
[2024-02-02] MEDS ORDERED: MoRPHine SULFATE PF 1 MG/ML 10 ML AMP/VIAL INT SPINAL ONE (15:40)
[2024-02-02] MEDS ORDERED: LACTATED RINGER'S 500 ML IV PRN (15:40)
--- NOTE | 2024-02-02 15:44 | Anesthesiology Progress Note ---
Date of Service February 02, 2024 Anesthesia Post Procedure Vital Signs Vital Signs: Temp Pulse Resp BP Pulse Ox 02/02/24 15:38 73 136/64 100 02/02/24 12:19 146 H 78 L 02/02/24 11:53 99.1 F 18 02/02/24 11:24 99.0 F 80 18 139/65 Transfer of Care Handoff Completed per policy Notes Mental Status: alert / awake / arousable and participated in evaluation Patient Amnestic to Procedure: No Nausea / Vomiting: adequately controlled Pain: adequately controlled Airway Patency, RR, SpO2: stable & adequate BP & HR: stable & adequate Hydration State: stable & adequate Neuraxial Anesthesia: was administered and sensory block is resolving Anesthetic Complications: no major complications apparent and Pt Satisfied with anesthetic care
[2024-02-02] MEDS ORDERED: NO NARCOTICS OR SEDATIVES SCH (15:45)
[2024-02-02] MEDS ORDERED: DC INTRASPINAL MORPHINE SCH (15:45)
[2024-02-02] MEDS: diphenhydrAMINE Capsule 25 MG CAP PO PRN (16:20)
[2024-02-02] MEDS: SIMETHICONE 80 MG CHEW PO SCH (16:21)
[2024-02-02] MEDS: MAG SULFATE 4GM BOLUS FROM BAG IV ONE (17:28)
[2024-02-02] MEDS: SODIUM CHLORIDE 0.9% 1,000 ML IV SCH (17:40)
[2024-02-02] MEDS: MAGNESIUM SULFATE / WTR 40 GM/1,000 ML BAG IV SCH (17:58)
[2024-02-02] MEDS: HYDROmorphone INJ 0.5 MG/0.5 ML SYR IV PRN (18:00)
[2024-02-02] MEDS: OXYTOCIN 30 UNITS/LR 1,003 ML IV SCH (18:49)
[2024-02-02] MEDS: DOCUSATE SODIUM 100 MG CAP PO SCH (21:27)
[2024-02-03 06:41] LABS: Albumin Globulin Ratio 1.2 (0.9-2); Albumin Level 2.9 gm/dl (3.4-5.0); BUN Creatinine Ratio 10.3 (10-20); Bilirubin,Total 0.7 mg/dl (0.2-1.0); Calcium 7.2 mg/dl (8.6-10.3); Creatinine Clr Calc Pharmacy 111.2 ml/min; Est GFR (African American) 132.3 ml/min; Est GFR (Non-African American) 114.1 ml/min; Globulin 2.4 gm/dl (2.5-4.0); Potassium 4.1 mmol/L (3.5-5.1); Total Protein 5.3 gm/dl (6.0-8.3)
[2024-02-03 06:47] LABS: Hematocrit (blood only) 34.6 % (37.0-47.0); Hemoglobin 11.6 g/dl (12.0-16.0); Mean Corpuscular Hemoglobin 32.1 pg (25.0-34.0); Mean Corpuscular Hgb Conc 33.5 g/dL (32.0-36.0); Mean Corpuscular Volume 95.8 fL (80.0-100.0); Mean Platelet Volume 11.6 fL (9.4-12.4); Platelet Count 80 K/uL (130-400); RDW Coefficient of Variation 12.8 % (11.5-14.5); RDW Standard Deviation 44.6 fL (36.4-46.3); Red Blood Count 3.61 M/uL (4.20-5.40); White Blood Count 10.74 K/ul (4.8-10.8)
[2024-02-03 06:55] LABS: Basophils # (auto) 0.03 K/uL (0.00-0.20); Basophils % (auto) 0.3 %; Eosinophils # (auto) 0.02 K/uL (0.00-0.50); Eosinophils % (auto) 0.2 %; Immature Granulocytes # (auto) 0.04 K/uL (0.01-0.20); Immature Granulocytes % (auto) 0.4 %; Lymphocytes # (auto) 1.07 K/uL (1.20-3.40); Monocytes # (auto) 0.69 K/uL (0.11-0.59); Monocytes % (auto) 6.4 %; Neutrophils # (auto) 8.89 K/uL (1.40-6.50); Neutrophils % (auto) 82.7 %
[2024-02-03] MEDS: ACETAMINOPHEN 1,000 MG/100 ML VIAL IV PRN (07:31)
[2024-02-03] MEDS ORDERED: SODIUM CHLORIDE 0.9% 250 ML IV PRN (08:03)
[2024-02-03] MEDS: FERROUS SULFATE 325 MG TAB PO SCH (08:21)
[2024-02-03] MEDS: PRENATAL VITAMIN 1 TAB PO SCH (08:21)
--- NOTE | 2024-02-03 08:35 | Obstetrical Progress Note ---
Date of Service February 03, 2024 Assessment & Plan (1) HELLP syndrome: Recovering POD#1 from RCS x4. Magnesium for HELLP syndrome with progression of LFT's to 400s and plts to 80 today. Trending these; patient is comfortable, no current TRISTAN or RUQ pain or vision change. Mag off and can do TOV/ambulate after dinnertime tonight. Subjective Voiding: hernandez catheter in place Passing Gas:: Yes Diet Tolerance:: regular diet Lochia:: Small Feeding Type:: breast feeding Physical Exam Constitutional WD/WN, vitals as above Eyes PERRL, conjunctivae normal, anicteric sclerae Neck normal visual inspection Respiratory normal respiratory effort and able to speak in complete sentences; no respiratory distress and no labored breathing Cardiovascular Rate/Rhythm: regular rate and regular rhythm Extremities: no edema Chest (Breasts) Chest: normal inspection of chest Gastrointestinal (Abdomen) Inspection/Auscultation: abdomen normal to inspection Soft, postgravid Incision c/d/i surgical glue in place Psychiatric A+Ox3, euthymic affect Genitourinary OB Exam Abdomen: + fundal height Fundus: + firm and + relation to umbilicus (fundus just below umbilicus); not tender Results & Data Vital Signs (Past 12 Hours) Vital Signs Temp Pulse Resp BP Pulse Ox 02/03/24 08:29 89 94 02/03/24 08:24 88 95 02/03/24 08:22 94 H 93 02/03/24 08:19 91 H 96 02/03/24 08:17 90 92 02/03/24 08:14 89 96 02/03/24 08:09 87 109/57 L 94 02/03/24 08:04 90 93 02/03/24 07:59 86 93 02/03/24 07:58 85 92 02/03/24 07:54 84 91 02/03/24 07:51 85 93 02/03/24 07:49 88 95 02/03/24 07:45 88 94 02/03/24 07:44 88 96 02/03/24 07:39 93 02/03/24 07:39 83 02/03/24 07:39 79 122/67 02/03/24 07:34 87 100 02/03/24 07:30 98.1 F 16 02/03/24 07:30 16 02/03/24 07:29 87 99 02/03/24 07:24 89 96 02/03/24 07:19 87 95 02/03/24 07:14 87 100 02/03/24 07:09 99 02/03/24 07:09 87 02/03/24 07:09 85 108/71 02/03/24 07:04 88 100 02/03/24 06:59 83 100 02/03/24 06:58 78 94 02/03/24 06:54 84 97 02/03/24 06:49 86 94 02/03/24 06:46 91 H 89 L 02/03/24 06:44 94 H 90 02/03/24 06:40 83 94 02/03/24 06:39 84 108/60 100 02/03/24 06:34 84 96 02/03/24 06:32 84 94 02/03/24 06:29 83 97 02/03/24 06:24 82 99 02/03/24 06:19 86 96 02/03/24 06:14 79 97 02/03/24 06:10 83 121/57 L 02/03/24 06:09 84 100 02/03/24 06:06 87 94 02/03/24 06:04 83 100 02/03/24 06:01 86 91 02/03/24 06:00 18 94 02/03/24 06:00 18 02/03/24 06:00 18 02/03/24 06:00 18 02/03/24 05:59 80 100 02/03/24 05:54 87 100 02/03/24 05:49 87 99 02/03/24 05:48 79 94 02/03/24 05:44 82 98 02/03/24 05:39 93 H 105/57 L 99 02/03/24 05:34 92 H 98 02/03/24 05:31 79 93 02/03/24 05:29 82 96 02/03/24 05:24 95 H 98 02/03/24 05:19 97 02/03/24 05:19 104 H 02/03/24 05:19 89 93 02/03/24 05:14 96 H 95 02/03/24 05:09 81 110/60 95 02/03/24 05:08 80 94 02/03/24 05:04 80 94 02/03/24 05:01 82 94 04/20/24 05:00 18 93 02/03/24 05:00 18 02/03/24 05:00 18 02/03/24 05:00 18 02/03/24 04:59 80 95 02/03/24 04:56 81 93 02/03/24 04:54 79 93 02/03/24 04:51 82 94 02/03/24 04:49 81 94 02/03/24 04:44 81 94 02/03/24 04:39 82 107/56 L 95 02/03/24 04:37 79 94 02/03/24 04:34 78 94 02/03/24 04:29 77 94 02/03/24 04:24 81 92 02/03/24 04:22 76 94 02/03/24 04:19 81 95 02/03/24 04:15 80 94 02/03/24 04:14 82 93 02/03/24 04:09 79 107/57 L 94 02/03/24 04:08 81 94 02/03/24 04:04 80 94 02/03/24 04:03 79 93 02/03/24 04:00 18 95 02/03/24 04:00 18 02/03/24 03:59 81 96 02/03/24 03:57 82 94 02/03/24 03:54 80 95 02/03/24 03:51 79 94 02/03/24 03:49 80 94 02/03/24 03:45 80 94 02/03/24 03:44 79 94 02/03/24 03:40 80 94 02/03/24 03:39 78 105/56 L 95 02/03/24 03:35 78 94 02/03/24 03:34 79 95 02/03/24 03:29 78 94 02/03/24 03:28 77 94 02/03/24 03:24 78 97 02/03/24 03:23 79 93 02/03/24 03:19 81 97 02/03/24 03:14 87 99 02/03/24 03:12 86 93 02/03/24 03:10 84 110/57 L 02/03/24 03:09 84 96 02/03/24 03:06 86 92 02/03/24 03:04 86 98 02/03/24 03:00 18 97 02/03/24 03:00 18 02/03/24 03:00 18 02/03/24 03:00 18 02/03/24 02:59 82 95 02/03/24 02:56 80 94 02/03/24 02:54 81 95 02/03/24 02:49 80 96 02/03/24 02:44 80 95 02/03/24 02:43 80 94 02/03/24 02:39 82 110/60 97 02/03/24 02:34 81 95 02/03/24 02:32 80 94 02/03/24 02:29 80 96 02/03/24 02:27 81 94 02/03/24 02:24 81 97 02/03/24 02:21 79 94 02/03/24 02:19 82 96 02/03/24 02:16 82 94 02/03/24 02:14 80 96 02/03/24 02:09 96 02/03/24 02:09 82 02/03/24 02:09 85 111/58 L 93 02/03/24 02:04 79 98 02/03/24 02:00 18 95 02/03/24 01:59 90 88 L 02/03/24 01:54 99 02/03/24 01:54 78 02/03/24 01:54 83 94 02/03/24 01:49 79 96 02/03/24 01:44 80 95 02/03/24 01:39 81 106/59 L 98 02/03/24 01:36 84 92 02/03/24 01:34 81 100 02/03/24 01:30 87 88 L 02/03/24 01:29 84 100 02/03/24 01:25 84 89 L 02/03/24 01:24 84 95 02/03/24 01:19 79 100 02/03/24 01:14 76 100 02/03/24 01:09 81 116/59 L 100 02/03/24 01:05 86 94 02/03/24 01:04 85 99 02/03/24 01:00 18 100 02/03/24 01:00 18 02/03/24 01:00 18 02/03/24 01:00 18 02/03/24 00:59 89 96 02/03/24 00:54 77 99 02/03/24 00:50 82 88 L 02/03/24 00:49 80 100 0420/24 00:44 77 100 02/03/24 00:39 79 104/59 L 99 02/03/24 00:34 78 100 02/03/24 00:29 80 98 02/03/24 00:24 76 98 02/03/24 00:19 75 100 02/03/24 00:14 78 99 02/03/24 00:09 78 108/59 L 100 02/03/24 00:06 80 93 02/03/24 00:04 71 100 02/03/24 00:01 18 02/03/24 00:01 18 02/03/24 00:00 18 02/03/24 00:00 18 02/02/24 23:59 76 99 02/02/24 23:54 72 96 02/02/24 23:49 86 100 02/02/24 23:44 75 99 02/02/24 23:39 78 105/55 L 98 02/02/24 23:34 79 98 02/02/24 23:33 74 93 02/02/24 23:29 82 98 02/02/24 23:27 75 91 02/02/24 23:24 79 98 02/02/24 23:22 84 92 02/02/24 23:19 83 97 02/02/24 23:16 71 94 02/02/24 23:14 84 98 02/02/24 23:10 97.9 F 77 18 106/60 02/02/24 23:09 79 98 02/02/24 23:06 88 91 02/02/24 23:04 76 96 02/02/24 23:00 18 97 02/02/24 23:00 18 02/02/24 22:59 78 100 02/02/24 22:56 78 92 02/02/24 22:54 75 96 02/02/24 22:49 78 97 02/02/24 22:44 80 99 02/02/24 22:43 84 92 02/02/24 22:40 78 105/55 L 02/02/24 22:39 80 96 02/02/24 22:37 89 91 02/02/24 22:34 87 96 02/02/24 22:29 84 98 02/02/24 22:24 85 99 02/02/24 22:21 79 94 02/02/24 22:19 74 97 02/02/24 22:15 74 92 02/02/24 22:14 88 99 02/02/24 22:09 73 110/55 L 96 02/02/24 22:08 81 93 02/02/24 22:04 82 95 02/02/24 22:02 78 94 02/02/24 22:00 18 94 02/02/24 22:00 18 02/02/24 21:59 80 96 02/02/24 21:55 79 94 02/02/24 21:54 79 96 02/02/24 21:49 79 94 02/02/24 21:47 79 93 02/02/24 21:44 88 99 02/02/24 21:40 83 106/66 02/02/24 21:39 87 97 02/02/24 21:36 80 94 02/02/24 21:34 93 H 98 02/02/24 21:29 91 H 96 02/02/24 21:28 82 94 02/02/24 21:24 82 97 02/02/24 21:22 79 94 02/02/24 21:19 80 96 02/02/24 21:16 84 94 02/02/24 21:14 81 97 02/02/24 21:10 81 116/61 02/02/24 21:09 82 98 02/02/24 21:04 78 95 02/02/24 21:00 18 97 02/02/24 21:00 18 02/02/24 21:00 74 18 91 02/02/24 20:59 77 92 02/02/24 20:54 85 93 02/02/24 20:49 72 98 02/02/24 20:47 74 92 02/02/24 20:44 75 97 02/02/24 20:40 92 02/02/24 20:40 76 02/02/24 20:40 73 131/82 02/02/24 20:38 86 100 02/02/24 20:33 80 97
[2024-02-03 14:10] LABS: Hematocrit (blood only) 31.6 % (37.0-47.0); Hemoglobin 10.9 g/dl (12.0-16.0); Mean Corpuscular Hemoglobin 32.8 pg (25.0-34.0); Mean Corpuscular Hgb Conc 34.5 g/dL (32.0-36.0); Mean Corpuscular Volume 95.2 fL (80.0-100.0); Mean Platelet Volume 11.3 fL (9.4-12.4); Platelet Count 51 K/uL (130-400); RDW Standard Deviation 44.6 fL (36.4-46.3); Red Blood Count 3.32 M/uL (4.20-5.40); White Blood Count 9.61 K/ul (4.8-10.8)
[2024-02-03 14:33] LABS: Calcium 6.3 mg/dl (8.6-10.3)
[2024-02-03 14:34] LABS: Albumin Globulin Ratio 1.3 (0.9-2); Albumin Level 2.8 gm/dl (3.4-5.0); BUN Creatinine Ratio 11.1 (10-20); Bilirubin,Total 0.8 mg/dl (0.2-1.0); Est GFR (African American) 135.6 ml/min; Globulin 2.2 gm/dl (2.5-4.0); Potassium 4.1 mmol/L (3.5-5.1)
--- NOTE | 2024-02-03 16:06 | Obstetrical Progress Note ---
Date of Service February 03, 2024 Assessment & Plan Admission and Anticipated Discharge Date Admission Date: February 02, 2024 Subjective Patient is awake, sitting up in bed, Face-timing with her older children to show them the new baby. She is feeling well. Had mild headache earlier today that resolved with PO pain medications. Reviewed labs with her. LFTs continuing to trend up - now in 600s (up from 400s this morning) and platelets have dropped to 51. I ordered LDH and coags. We are about 24 hours after delivery at this point, anticipate the usual progression of HELLP syndrome may show worsening of labs in the first 24-48h after delivery, then should trend toward normal. Will plan to repeat labs at 10pm this evening. Results & Data Vital Signs (Past 12 Hours) Vital Signs Temp Pulse Resp BP Pulse Ox 02/03/24 14:57 99 02/03/24 14:57 84 02/03/24 14:52 97 02/03/24 14:52 80 02/03/24 14:47 98 02/03/24 14:47 80 02/03/24 14:42 97 02/03/24 14:42 78 02/03/24 14:39 80 02/03/24 14:39 110/61 02/03/24 14:37 96 02/03/24 14:37 82 02/03/24 14:36 93 02/03/24 14:36 84 02/03/24 14:32 98 02/03/24 14:32 82 02/03/24 14:30 16 02/03/24 14:27 97 02/03/24 14:27 82 02/03/24 14:22 98 02/03/24 14:22 79 02/03/24 14:20 92 02/03/24 14:20 87 02/03/24 14:17 99 02/03/24 14:17 77 02/03/24 14:12 100 02/03/24 14:12 83 02/03/24 14:10 88 L 02/03/24 14:10 78 02/03/24 14:09 77 02/03/24 14:09 111/66 02/03/24 14:07 98 02/03/24 14:07 75 02/03/24 14:02 97 02/03/24 14:02 83 02/03/24 13:57 98 02/03/24 13:57 75 02/03/24 13:52 99 02/03/24 13:52 81 02/03/24 13:47 97 02/03/24 13:47 77 02/03/24 13:42 97 02/03/24 13:42 78 02/03/24 13:39 78 02/03/24 13:39 109/62 02/03/24 13:37 97 02/03/24 13:37 79 02/03/24 13:32 97 02/03/24 13:32 80 02/03/24 13:27 97 02/03/24 13:27 84 02/03/24 13:22 96 02/03/24 13:22 78 02/03/24 13:17 98 02/03/24 13:17 82 02/03/24 13:12 97 02/03/24 13:12 77 02/03/24 13:09 80 02/03/24 13:09 111/68 02/03/24 13:07 95 02/03/24 13:07 82 02/03/24 13:02 98 02/03/24 13:02 77 02/03/24 12:57 98 02/03/24 12:57 79 02/03/24 12:52 98 02/03/24 12:52 80 02/03/24 12:51 94 02/03/24 12:51 79 02/03/24 12:47 97 02/03/24 12:47 80 02/03/24 12:42 97 02/03/24 12:42 77 02/03/24 12:39 74 02/03/24 12:39 117/66 02/03/24 12:37 97 02/03/24 12:37 82 02/03/24 12:32 96 02/03/24 12:32 78 02/03/24 12:27 96 02/03/24 12:27 78 02/03/24 12:22 95 02/03/24 12:22 85 02/03/24 12:22 93 02/03/24 12:22 85 02/03/24 12:17 98 02/03/24 12:17 85 02/03/24 12:12 97 02/03/24 12:12 84 02/03/24 12:09 76 02/03/24 12:09 111/63 02/03/24 12:07 95 02/03/24 12:07 79 02/03/24 12:04 94 02/03/24 12:04 80 02/03/24 12:02 94 02/03/24 12:02 81 02/03/24 11:58 93 02/03/24 11:58 81 02/03/24 11:57 96 02/03/24 11:57 78 02/03/24 11:52 98 02/03/24 11:52 79 02/03/24 11:47 96 02/03/24 11:47 79 02/03/24 11:45 36.7 C 16 02/03/24 11:45 16 02/03/24 11:42 96 02/03/24 11:42 87 02/03/24 11:42 93 02/03/24 11:42 86 02/03/24 11:39 75 02/03/24 11:39 108/67 02/03/24 11:37 96 02/03/24 11:37 76 02/03/24 11:35 94 02/03/24 11:35 76 02/03/24 11:32 96 02/03/24 11:32 78 02/03/24 11:28 91 02/03/24 11:28 78 02/03/24 11:27 97 02/03/24 11:27 80 02/03/24 11:22 96 02/03/24 11:22 82 02/03/24 11:18 92 02/03/24 11:18 85 02/03/24 11:17 98 02/03/24 11:17 89 02/03/24 11:12 96 02/03/24 11:12 86 02/03/24 11:11 93 02/03/24 11:11 85 02/03/24 11:09 86 02/03/24 11:09 106/63 02/03/24 11:07 96 02/03/24 11:07 86 02/03/24 11:05 94 02/03/24 11:05 82 02/03/24 11:02 94 02/03/24 11:02 83 02/03/24 11:00 94 02/03/24 11:00 81 02/03/24 10:57 96 02/03/24 10:57 86 02/03/24 10:54 94 02/03/24 10:54 78 02/03/24 10:52 95 02/03/24 10:52 81 02/03/24 10:47 96 02/03/24 10:47 88 02/03/24 10:43 94 02/03/24 10:43 79 02/03/24 10:42 95 02/03/24 10:42 83 02/03/24 10:39 87 02/03/24 10:39 106/64 02/03/24 10:37 96 02/03/24 10:37 84 02/03/24 10:35 94 02/03/24 10:35 80 02/03/24 10:32 93 02/03/24 10:32 79 02/03/24 10:27 94 02/03/24 10:27 79 02/03/24 10:25 94 02/03/24 10:25 81 02/03/24 10:22 96 02/03/24 10:22 89 02/03/24 10:17 95 02/03/24 10:17 85 02/03/24 10:12 86 96 02/03/24 10:10 84 94 02/03/24 10:09 83 107/55 L 02/03/24 10:07 86 96 02/03/24 10:02 83 94 02/03/24 10:00 16 95 02/03/24 09:57 85 96 02/03/24 09:30 16 02/03/24 09:29 94 H 96 02/03/24 09:26 95 H 94 02/03/24 09:24 94 H 96 02/03/24 09:19 95 H 95 02/03/24 09:14 85 96 02/03/24 09:13 89 94 02/03/24 09:09 80 110/55 L 95 02/03/24 09:08 85 94 02/03/24 09:04 86 96 02/03/24 09:00 18 96 02/03/24 08:59 84 96 02/03/24 08:54 90 97 02/03/24 08:52 82 94 02/03/24 08:49 82 96 02/03/24 08:45 97 H 93 02/03/24 08:44 93 H 96 02/03/24 08:40 89 94 04/20/24 08:39 84 100/56 L 94 02/03/24 08:35 83 94 02/03/24 08:34 84 95 02/03/24 08:29 89 94 02/03/24 08:24 88 95 02/03/24 08:22 94 H 93 02/03/24 08:19 91 H 96 02/03/24 08:17 90 92 02/03/24 08:14 89 96 02/03/24 08:09 87 109/57 L 94 02/03/24 08:04 90 93 02/03/24 08:00 18 95 02/03/24 08:00 16 96 02/03/24 07:59 86 93 02/03/24 07:58 85 92 02/03/24 07:54 84 91 02/03/24 07:51 85 93 02/03/24 07:49 88 95 02/03/24 07:45 88 94 02/03/24 07:44 88 96 02/03/24 07:39 93 02/03/24 07:39 83 02/03/24 07:39 79 122/67 02/03/24 07:34 87 100 02/03/24 07:30 36.7 C 16 02/03/24 07:30 16 02/03/24 07:29 87 99 02/03/24 07:24 89 96 02/03/24 07:19 87 95 02/03/24 07:14 87 100 02/03/24 07:09 99 02/03/24 07:09 87 02/03/24 07:09 85 108/71 02/03/24 07:04 88 100 02/03/24 07:00 16 94 02/03/24 06:59 83 100 02/03/24 06:58 78 94 02/03/24 06:54 84 97 02/03/24 06:49 86 94 02/03/24 06:46 91 H 89 L 02/03/24 06:44 94 H 90 02/03/24 06:40 83 94 02/03/24 06:39 84 108/60 100 02/03/24 06:34 84 96 02/03/24 06:32 84 94 02/03/24 06:29 83 97 02/03/24 06:24 82 99 02/03/24 06:19 86 96 02/03/24 06:14 79 97 02/03/24 06:10 83 121/57 L 02/03/24 06:09 84 100 02/03/24 06:06 87 94 02/03/24 06:04 83 100 02/03/24 06:01 86 91 02/03/24 06:00 18 94 02/03/24 06:00 18 02/03/24 06:00 18 02/03/24 06:00 18 02/03/24 05:59 80 100 02/03/24 05:54 87 100 02/03/24 05:49 87 99 02/03/24 05:48 79 94 02/03/24 05:44 82 98 02/03/24 05:39 93 H 105/57 L 99 02/03/24 05:34 92 H 98 02/03/24 05:31 79 93 02/03/24 05:29 82 96 02/03/24 05:24 95 H 98 02/03/24 05:19 97 02/03/24 05:19 104 H 02/03/24 05:19 89 93 02/03/24 05:14 96 H 95 02/03/24 05:09 81 110/60 95 02/03/24 05:08 80 94 02/03/24 05:04 80 94 02/03/24 05:01 82 94 02/03/24 05:00 18 93 02/03/24 05:00 18 02/03/24 05:00 18 02/03/24 05:00 18 02/03/24 04:59 80 95 02/03/24 04:56 81 93 02/03/24 04:54 79 93 02/03/24 04:51 82 94 02/03/24 04:49 81 94 02/03/24 04:44 81 94 02/03/24 04:39 82 107/56 L 95 02/03/24 04:37 79 94 02/03/24 04:34 78 94 02/03/24 04:29 77 94 02/03/24 04:24 81 92 02/03/24 04:22 76 94 02/03/24 04:19 81 95 02/03/24 04:15 80 94 02/03/24 04:14 82 93 02/03/24 04:09 79 107/57 L 94 02/03/24 04:08 81 94 02/03/24 04:04 80 94 04/20/24 04:03 79 93 02/03/24 04:00 18 95 02/03/24 04:00 18 02/03/24 03:59 81 96 02/03/24 03:57 82 94 02/03/24 03:54 80 95 02/03/24 03:51 79 94 02/03/24 03:49 80 94 02/03/24 03:45 80 94 02/03/24 03:44 79 94 02/03/24 03:40 80 94 02/03/24 03:39 78 105/56 L 95 02/03/24 03:35 78 94 02/03/24 03:34 79 95 02/03/24 03:29 78 94 02/03/24 03:28 77 94 02/03/24 03:24 78 97 02/03/24 03:23 79 93 02/03/24 03:19 81 97 02/03/24 03:14 87 99 02/03/24 03:12 86 93 02/03/24 03:10 84 110/57 L 02/03/24 03:09 84 96 02/03/24 03:06 86 92 02/03/24 03:04 86 98 PG Care Time/CCT Total # of Minutes Spent Total Time Spent with Patient: Total time spent is greater than 50% in coordination of care (as documented) at patient's floor/unit and/or counseling patient: Coding Level of Care Code None
[2024-02-03 16:11] LABS: Fibrinogen 446 mg/dl (184-400); INR 0.9 (0.9-1.1); Partial Thromboplastin Ratio 1.1; Partial Thromboplastin Time 31 Seconds (21-31); Prothrombin Time 9.8 Seconds (9.0-12.0)
[2024-02-03] MEDS: bisacodyL 5 MG TABEC PO SCH (20:27)
[2024-02-03] MEDS: LACTATED RINGER'S 1,000 ML IV SCH (22:04)
[2024-02-03 23:06] LABS: Hematocrit (blood only) 33.2 % (37.0-47.0); Hemoglobin 11.6 g/dl (12.0-16.0); Mean Corpuscular Hgb Conc 34.9 g/dL (32.0-36.0); Mean Corpuscular Volume 94.3 fL (80.0-100.0); Mean Platelet Volume 11.2 fL (9.4-12.4); Platelet Count 58 K/uL (130-400); RDW Coefficient of Variation 13.2 % (11.5-14.5); RDW Standard Deviation 45.3 fL (36.4-46.3); Red Blood Count 3.52 M/uL (4.20-5.40); White Blood Count 11.07 K/ul (4.8-10.8)
[2024-02-03 23:22] LABS: BUN Creatinine Ratio 10.2 (10-20); Calcium 6.4 mg/dl (8.6-10.3); Creatinine Clr Calc Pharmacy 128.2 ml/min; Est GFR (African American) 138.6 ml/min; Est GFR (Non-African American) 119.6 ml/min; Potassium 3.9 mmol/L (3.5-5.1)
[2024-02-03 23:40] LABS: Albumin Globulin Ratio 1.2 (0.9-2); Albumin Level 2.9 gm/dl (3.4-5.0); Bilirubin,Total 0.8 mg/dl (0.2-1.0); Globulin 2.5 gm/dl (2.5-4.0); Total Protein 5.4 gm/dl (6.0-8.3)
[2024-02-03] MEDS: oxyCODONE/ACETAMINOPHEN 5mg/325mg TAB PO PRN (23:50)
[2024-02-03] MEDS: IBUPROFEN 600 MG TAB PO PRN (23:51)
--- NOTE | 2024-02-04 00:43 | Obstetrical Progress Note ---
Date of Service February 04, 2024 Assessment & Plan Admission and Anticipated Discharge Date Admission Date: February 02, 2024 Subjective Awake, sitting in bed, eating. Feeling better. Had brief moments of dizziness while eating, but overall feeling much better off magnesium now. Labs starting to improve, reviewed with patient. Will repeat in AM. Results & Data Vital Signs (Past 12 Hours) Vital Signs Temp Pulse Resp BP Pulse Ox O2 Del Method 02/04/24 00:00 18 02/03/24 23:48 83 02/03/24 23:48 120/73 02/03/24 23:47 97 02/03/24 23:47 84 02/03/24 23:42 96 02/03/24 23:42 79 02/03/24 23:41 83 02/03/24 23:41 177/63 H 02/03/24 23:37 96 02/03/24 23:37 81 02/03/24 23:32 96 02/03/24 23:32 83 02/03/24 23:27 98 02/03/24 23:27 85 02/03/24 23:22 96 02/03/24 23:22 83 02/03/24 23:17 97 02/03/24 23:17 80 02/03/24 23:12 96 02/03/24 23:12 83 02/03/24 23:07 96 02/03/24 23:07 82 02/03/24 23:05 16 02/03/24 23:05 37.1 C 16 02/03/24 23:02 97 02/03/24 23:02 78 02/03/24 22:57 97 02/03/24 22:57 78 02/03/24 22:52 97 02/03/24 22:52 87 02/03/24 22:47 97 02/03/24 22:47 80 02/03/24 22:42 97 02/03/24 22:42 76 02/03/24 22:40 78 02/03/24 22:40 130/69 02/03/24 22:37 98 02/03/24 22:37 76 02/03/24 22:32 97 02/03/24 22:32 84 02/03/24 22:27 95 02/03/24 22:27 75 02/03/24 22:24 94 02/03/24 22:24 78 02/03/24 22:22 97 02/03/24 22:22 77 02/03/24 22:17 97 02/03/24 22:17 80 02/03/24 22:12 96 02/03/24 22:12 77 02/03/24 22:07 97 02/03/24 22:07 77 02/03/24 22:05 16 02/03/24 22:02 98 02/03/24 22:02 79 02/03/24 21:57 97 02/03/24 21:57 78 02/03/24 21:52 97 02/03/24 21:52 78 02/03/24 21:49 94 02/03/24 21:49 87 02/03/24 21:47 99 02/03/24 21:47 87 02/03/24 21:42 97 02/03/24 21:42 74 02/03/24 21:40 75 02/03/24 21:40 111/66 02/03/24 21:37 96 02/03/24 21:37 77 02/03/24 21:32 97 02/03/24 21:32 74 02/03/24 21:27 98 02/03/24 21:27 74 02/03/24 21:22 97 02/03/24 21:22 74 02/03/24 21:17 98 02/03/24 21:17 72 02/03/24 21:15 16 02/03/24 21:12 98 02/03/24 21:12 73 02/03/24 21:07 98 02/03/24 21:07 75 02/03/24 21:02 98 02/03/24 21:02 75 02/03/24 20:57 98 02/03/24 20:57 76 02/03/24 20:52 98 02/03/24 20:52 74 02/03/24 20:47 97 02/03/24 20:47 76 02/03/24 20:42 98 02/03/24 20:42 78 02/03/24 20:41 79 02/03/24 20:41 127/66 02/03/24 20:37 98 02/03/24 20:37 82 02/03/24 20:32 98 02/03/24 20:32 79 02/03/24 20:27 98 02/03/24 20:27 78 02/03/24 20:22 96 02/03/24 20:22 75 02/03/24 20:17 96 02/03/24 20:17 77 02/03/24 20:12 97 02/03/24 20:12 73 02/03/24 20:07 98 02/03/24 20:07 75 02/03/24 20:02 98 02/03/24 20:02 73 02/03/24 20:00 18 02/03/24 19:57 98 02/03/24 19:57 75 02/03/24 19:52 98 02/03/24 19:52 74 02/03/24 19:47 98 02/03/24 19:47 75 02/03/24 19:42 97 02/03/24 19:42 79 02/03/24 19:39 74 02/03/24 19:39 124/77 02/03/24 19:37 96 02/03/24 19:37 76 02/03/24 19:32 97 02/03/24 19:32 77 02/03/24 19:27 97 02/03/24 19:27 77 02/03/24 19:22 97 02/03/24 19:22 77 02/03/24 19:17 93 02/03/24 19:17 81 02/03/24 19:15 Room Air 02/03/24 19:15 36.7 C 16 02/03/24 19:15 16 02/03/24 19:12 97 02/03/24 19:12 74 02/03/24 19:09 78 02/03/24 19:09 119/68 02/03/24 19:07 94 02/03/24 19:07 84 02/03/24 19:06 91 02/03/24 19:06 78 02/03/24 19:02 97 02/03/24 19:02 78 02/03/24 18:57 96 02/03/24 18:57 81 02/03/24 18:54 92 02/03/24 18:54 82 02/03/24 18:52 98 02/03/24 18:52 84 02/03/24 18:47 97 02/03/24 18:47 75 02/03/24 18:42 97 02/03/24 18:42 76 02/03/24 18:39 76 02/03/24 18:39 124/72 02/03/24 18:37 97 02/03/24 18:37 81 02/03/24 18:32 97 02/03/24 18:32 76 02/03/24 18:27 97 02/03/24 18:27 79 02/03/24 18:24 92 02/03/24 18:24 85 02/03/24 18:22 98 02/03/24 18:22 82 02/03/24 18:17 97 02/03/24 18:17 77 02/03/24 18:12 97 02/03/24 18:12 76 02/03/24 18:09 75 02/03/24 18:09 117/69 02/03/24 18:07 98 02/03/24 18:07 76 02/03/24 18:02 98 02/03/24 18:02 75 02/03/24 17:57 96 02/03/24 17:57 74 02/03/24 17:52 99 02/03/24 17:52 73 02/03/24 17:48 92 02/03/24 17:48 76 02/03/24 17:47 97 02/03/24 17:47 79 02/03/24 17:42 99 02/03/24 17:42 74 02/03/24 17:39 72 02/03/24 17:39 122/65 02/03/24 17:37 100 02/03/24 17:37 78 02/03/24 17:32 98 02/03/24 17:32 77 02/03/24 17:30 16 02/03/24 17:27 91 02/03/24 17:27 79 02/03/24 17:22 99 02/03/24 17:22 76 02/03/24 17:21 90 02/03/24 17:21 82 02/03/24 17:17 97 02/03/24 17:17 85 02/03/24 17:12 96 02/03/24 17:12 74 02/03/24 17:09 89 02/03/24 17:09 125/72 02/03/24 17:07 96 02/03/24 17:07 72 02/03/24 17:02 96 02/03/24 17:02 72 02/03/24 16:57 96 02/03/24 16:57 70 02/03/24 16:52 96 02/03/24 16:52 72 02/03/24 16:47 96 02/03/24 16:47 72 02/03/24 16:42 95 02/03/24 16:42 72 02/03/24 16:40 73 02/03/24 16:40 150/68 H 02/03/24 16:37 95 02/03/24 16:37 74 02/03/24 16:32 96 02/03/24 16:32 83 02/03/24 16:27 94 02/03/24 16:27 72 02/03/24 16:26 94 02/03/24 16:26 73 02/03/24 16:22 96 02/03/24 16:22 78 02/03/24 16:17 96 02/03/24 16:17 76 02/03/24 16:12 95 02/03/24 16:12 76 02/03/24 16:09 71 02/03/24 16:09 114/59 L 02/03/24 16:07 95 02/03/24 16:07 75 02/03/24 16:03 94 02/03/24 16:03 75 02/03/24 16:02 96 02/03/24 16:02 74 02/03/24 15:57 98 02/03/24 15:57 81 02/03/24 15:56 90 02/03/24 15:56 81 02/03/24 15:52 94 02/03/24 15:52 78 02/03/24 15:47 96 02/03/24 15:47 77 02/03/24 15:42 97 02/03/24 15:42 76 02/03/24 15:39 76 02/03/24 15:39 108/61 02/03/24 15:37 94 02/03/24 15:37 75 02/03/24 15:32 97 02/03/24 15:32 81 02/03/24 15:30 16 02/03/24 15:27 97 02/03/24 15:27 76 02/03/24 15:22 95 02/03/24 15:22 82 02/03/24 15:17 99 02/03/24 15:17 81 02/03/24 15:12 97 02/03/24 15:12 79 02/03/24 15:09 80 02/03/24 15:09 108/70 02/03/24 15:07 97 02/03/24 15:07 78 02/03/24 15:02 98 02/03/24 15:02 78 02/03/24 14:57 99 02/03/24 14:57 84 02/03/24 14:52 97 02/03/24 14:52 80 02/03/24 14:47 98 02/03/24 14:47 80 02/03/24 14:42 97 02/03/24 14:42 78 02/03/24 14:39 80 02/03/24 14:39 110/61 02/03/24 14:37 96 02/03/24 14:37 82 02/03/24 14:36 93 02/03/24 14:36 84 02/03/24 14:32 98 02/03/24 14:32 82 02/03/24 14:30 16 02/03/24 14:27 97 02/03/24 14:27 82 02/03/24 14:22 98 02/03/24 14:22 79 02/03/24 14:20 92 02/03/24 14:20 87 02/03/24 14:17 99 02/03/24 14:17 77 02/03/24 14:12 100 02/03/24 14:12 83 02/03/24 14:10 88 L 02/03/24 14:10 78 02/03/24 14:09 77 02/03/24 14:09 111/66 02/03/24 14:07 98 02/03/24 14:07 75 02/03/24 14:02 97 02/03/24 14:02 83 02/03/24 13:57 98 02/03/24 13:57 75 02/03/24 13:52 99 02/03/24 13:52 81 02/03/24 13:47 97 02/03/24 13:47 77 02/03/24 13:42 97 02/03/24 13:42 78 02/03/24 13:39 78 02/03/24 13:39 109/62 02/03/24 13:37 97 04/20/24 13:37 79 02/03/24 13:32 97 02/03/24 13:32 80 02/03/24 13:27 97 02/03/24 13:27 84 02/03/24 13:22 96 02/03/24 13:22 78 02/03/24 13:17 98 02/03/24 13:17 82 02/03/24 13:12 97 02/03/24 13:12 77 02/03/24 13:09 80 02/03/24 13:09 111/68 02/03/24 13:07 95 02/03/24 13:07 82 02/03/24 13:02 98 02/03/24 13:02 77 02/03/24 12:57 98 02/03/24 12:57 79 02/03/24 12:52 98 02/03/24 12:52 80 02/03/24 12:51 94 02/03/24 12:51 79 02/03/24 12:47 97 02/03/24 12:47 80 PG Care Time/CCT Total # of Minutes Spent Total Time Spent with Patient: Total time spent is greater than 50% in coordination of care (as documented) at patient's floor/unit and/or counseling patient: Coding Level of Care Code None
[2024-02-04 07:12] LABS: Hematocrit (blood only) 32.9 % (37.0-47.0); Hemoglobin 11.2 g/dl (12.0-16.0); Mean Corpuscular Hemoglobin 32.2 pg (25.0-34.0); Mean Corpuscular Volume 94.5 fL (80.0-100.0); Mean Platelet Volume 11.5 fL (9.4-12.4); Platelet Count 68 K/uL (130-400); RDW Coefficient of Variation 13.3 % (11.5-14.5); RDW Standard Deviation 46.1 fL (36.4-46.3); Red Blood Count 3.48 M/uL (4.20-5.40); White Blood Count 11.13 K/ul (4.8-10.8)
[2024-02-04 07:25] LABS: Albumin Globulin Ratio 1.1 (0.9-2); Albumin Level 2.8 gm/dl (3.4-5.0); BUN Creatinine Ratio 13.2 (10-20); Bilirubin,Total 0.5 mg/dl (0.2-1.0); Calcium 6.5 mg/dl (8.6-10.3); Creatinine Clr Calc Pharmacy 111.2 ml/min; Est GFR (African American) 132.3 ml/min; Est GFR (Non-African American) 114.1 ml/min; Globulin 2.5 gm/dl (2.5-4.0); Potassium 4.4 mmol/L (3.5-5.1); Total Protein 5.3 gm/dl (6.0-8.3)
--- NOTE | 2024-02-04 08:30 | Obstetrical Progress Note ---
Date of Service February 04, 2024 Assessment & Plan (1) HELLP syndrome: POD#2 s/p repeat section d/t HELLP syndrome. Labs are trending towards improvement. She is feeling well, no concerns. Tolerating PO. Will plan for repeat labs in 12h and anticipate DC home tomorrow. Subjective Ambulation: limited ambulation Voiding: no voiding problems Diet Tolerance:: regular diet Lochia:: Moderate Review of Systems All systems reviewed & are unremarkable except as noted in HPI & below Physical Exam Constitutional WD/WN, vitals as above no acute distress Respiratory normal respiratory effort Cardiovascular Rate/Rhythm: regular rate and regular rhythm Gastrointestinal (Abdomen) Inspection/Auscultation: abdomen normal to inspection; abdomen not distended Percussion/Palpation: abdomen soft Genitourinary OB Exam Abdomen: + fundal height Fundus: + firm; not tender Results & Data Vital Signs (Past 12 Hours) Vital Signs Temp Pulse Resp BP Pulse Ox 02/04/24 07:35 36.7 C 16 02/04/24 07:35 74 128/62 02/04/24 06:02 82 113/73 02/04/24 03:08 36.9 C 02/04/24 02:53 18 02/04/24 02:32 75 127/76 02/04/24 00:00 18 02/03/24 23:48 83 02/03/24 23:48 120/73 02/03/24 23:47 97 02/03/24 23:47 84 02/03/24 23:42 96 02/03/24 23:42 79 02/03/24 23:41 83 02/03/24 23:41 177/63 H 02/03/24 23:37 96 02/03/24 23:37 81 02/03/24 23:32 96 02/03/24 23:32 83 02/03/24 23:27 98 02/03/24 23:27 85 02/03/24 23:22 96 02/03/24 23:22 83 02/03/24 23:17 97 02/03/24 23:17 80 02/03/24 23:12 96 02/03/24 23:12 83 02/03/24 23:07 96 02/03/24 23:07 82 02/03/24 23:05 16 02/03/24 23:05 37.1 C 16 02/03/24 23:02 97 02/03/24 23:02 78 02/03/24 22:57 97 02/03/24 22:57 78 02/03/24 22:52 97 02/03/24 22:52 87 02/03/24 22:47 97 02/03/24 22:47 80 02/03/24 22:42 97 02/03/24 22:42 76 02/03/24 22:40 78 02/03/24 22:40 130/69 02/03/24 22:37 98 02/03/24 22:37 76 02/03/24 22:32 97 02/03/24 22:32 84 02/03/24 22:27 95 02/03/24 22:27 75 02/03/24 22:24 94 02/03/24 22:24 78 02/03/24 22:22 97 02/03/24 22:22 77 02/03/24 22:17 97 02/03/24 22:17 80 02/03/24 22:12 96 02/03/24 22:12 77 02/03/24 22:07 97 02/03/24 22:07 77 02/03/24 22:05 16 02/03/24 22:02 98 02/03/24 22:02 79 02/03/24 21:57 97 02/03/24 21:57 78 02/03/24 21:52 97 02/03/24 21:52 78 02/03/24 21:49 94 02/03/24 21:49 87 02/03/24 21:47 99 02/03/24 21:47 87 02/03/24 21:42 97 02/03/24 21:42 74 02/03/24 21:40 75 02/03/24 21:40 111/66 02/03/24 21:37 96 02/03/24 21:37 77 02/03/24 21:32 97 02/03/24 21:32 74 02/03/24 21:27 98 02/03/24 21:27 74 02/03/24 21:22 97 02/03/24 21:22 74 02/03/24 21:17 98 02/03/24 21:17 72 02/03/24 21:15 16 02/03/24 21:12 98 02/03/24 21:12 73 02/03/24 21:07 98 02/03/24 21:07 75 02/03/24 21:02 98 02/03/24 21:02 75 02/03/24 20:57 98 02/03/24 20:57 76 02/03/24 20:52 98 02/03/24 20:52 74 02/03/24 20:47 97 02/03/24 20:47 76 02/03/24 20:42 98 02/03/24 20:42 78 02/03/24 20:41 79 02/03/24 20:41 127/66 02/03/24 20:37 98 02/03/24 20:37 82 02/03/24 20:32 98 02/03/24 20:32 79
[2024-02-04] MEDS: DIPHTHER/TETAN/PERTUS Vaccine (Tdap, Adol/Adult) 0.5mL IM ONE (09:34)
[2024-02-04] MEDS ORDERED: bisacodyL 10 MG SUPP PR PRN (15:28)
[2024-02-04 19:08] LABS: Albumin Globulin Ratio 1.1 (0.9-2); Albumin Level 3.2 gm/dl (3.4-5.0); BUN Creatinine Ratio 14.7 (10-20); Bilirubin,Total 0.4 mg/dl (0.2-1.0); Calcium 7.2 mg/dl (8.6-10.3); Creatinine Clr Calc Pharmacy 100.8 ml/min; Est GFR (African American) 120.5 ml/min; Globulin 2.8 gm/dl (2.5-4.0); Potassium 4.4 mmol/L (3.5-5.1)
[2024-02-04 19:09] LABS: Hemoglobin 11.8 g/dl (12.0-16.0); Mean Corpuscular Hemoglobin 32.8 pg (25.0-34.0); Mean Corpuscular Hgb Conc 33.7 g/dL (32.0-36.0); Mean Corpuscular Volume 97.2 fL (80.0-100.0); Mean Platelet Volume 11.2 fL (9.4-12.4); Platelet Count 96 K/uL (130-400); Platelet Estimate Decreased (Normal); RDW Coefficient of Variation 13.4 % (11.5-14.5); RDW Standard Deviation 47.4 fL (36.4-46.3); White Blood Count 13.98 K/ul (4.8-10.8)
--- NOTE | 2024-02-05 06:16 | Obstetrical Progress Note ---
Date of Service February 05, 2024 Assessment & Plan (1) care and examination: (2) HELLP syndrome: Plan Continuing to improve Encourage ambulation Pain control Anticipate dc today Admission and Anticipated Discharge Date Admission Date: February 02, 2024 Supervising Physician Co-Signing Physician Notes Resident Physician Supervision Note: I interviewed and examined the patient. Discussed with Dr. Christiansen and agree with findings and plan as documented in the note. Any exceptions or clarifications are listed here: POD3 s/p repeat for HELLP syndrome. She is feeling well, labs have trended towards normal. Desires DC home. Advise office visit in 1 week for recheck of symptoms, BP check, incision check, could consider labs if necessary. Reviewed DC instructions. Documented By: Lulu Moreau, Subjective 33 yo post op day 3 s/p . Pt with HELLP syndrome. Labs continue to improve. Ambulation: ambulating normally Voiding: no voiding problems Passing Gas:: Yes Diet Tolerance:: regular diet Lochia:: Small Current Pain Level: minimal Resting comfortably this AM in NAD. Denies TRISTAN, CP, SOB, N/V/D, LE pain/swelling. Review of Systems Review of Systems: reviewed, per HPI Physical Exam Physical Exam: General: patient resting comfortably, NAD, non-toxic in appearance, answers questions appropriately. Skin: warm, dry, intact HEENT: NC/AT, anicteric sclera, conjunctiva without injection, moist mucus membranes. Heart: +S1/S2, regular, no m/r/g Lungs: equal air entry bilaterally, no rales/rhonchi/wheezes Abd: +BS, soft, NT/ND, uterine fundus firm at umbilicus, caesarean incision C/D/I. Ext: warm, no clubbing/cyanosis or edema, Nils's neg. Neuro: nonfocal, speech intact, no facial droop, moving all extremities on command. Results & Data Vital Signs (Past 12 Hours) Vital Signs Temp Pulse Pulse Resp BP Pulse Ox O2 Del Method 02/05/24 03:00 36.7 C 72 18 123/87 98 Room Air 02/04/24 22:36 36.8 C 78 18 117/75 96 Room Air 02/04/24 19:08 36.9 C 96 H 18 114/77 97 Room Air Resident Activity Tracking Resident Involvement: Resident Care Provided Care Provided: Adult Hospital Medicine
--- NOTE | 2024-02-06 10:42 | Discharge Summary ---
Date of Service February 06, 2024 Admission HPI Per Admitting Provider 33 y/o at 36w 6 d. Here for section. Patient had hx of HELLP syndrome x2. Complications with this include previous c section x3, Anti C, G, on current and GDM on insulin. Has been attending OB appointments regularly. Currently taking no medications. GBS negative , Rubella equivocal, BTG: A negative Contractions: none. Fluid or Blood loss: none Movement: active FHR baseline 130, moderate variability, accelerations present, decelerations absent Lab Results OB Labs: Blood Type A Negative 07/17/23 Antibody Screen POSITIVE A 12/05/23 Hemoglobin 12.6 g/dl (12.0-16.0) 12/05/23 Hematocrit 37.1 % (37.0-47.0) 12/05/23 Mean Corpuscular Volume 94.3 fL (80.0-100.0) 07/17/23 Platelet Count 215 K/uL (130-400) 07/17/23 Rubella IgG Antibody Equivocal (Immune) L 07/17/23 Rapid Plasma Reagin Nonreactive (Nonreactive) 07/17/23 Hepatitis B Surface Antigen Neg (Neg) 08/31/21 Hepatitis B Surface Antigen. NON-REACTIVE (NON-REACTIVE) 07/17/23 Hepatitis C Antibody (EIA) NON-REACTIVE (NON-REACTIVE) 07/17/23 HIV (1&2) Ab and P24 Ag, 4th Gener Neg (Neg) 02/10/21 HIV (1&2) Ag and Ab Confirmation NON-REACTIVE (NON-REACTIVE) 07/17/23 Glucose 1 Hour 50 gm Load 139 mg/dl (70-130) H 07/08/21 OB Optional Labs: Chlamydia trachomatis RNA Not Detected (NotDetected) 07/17/23 Neisseria gonorrhoeae RNA Not Detected (NotDetected) 07/17/23 Labs Reviewed: Declines genetics--mln declined afp Admission Exam (Per Admitting) Constitutional WD/WN, vitals as above Eyes PERRL, conjunctivae normal, anicteric sclerae Neck normal visual inspection Respiratory normal respiratory effort and able to speak in complete sentences; no respiratory distress and no labored breathing Cardiovascular Rate/Rhythm: regular rate and regular rhythm Extremities: no edema Chest (Breasts) Chest: normal inspection of chest Gastrointestinal (Abdomen) Inspection/Auscultation: abdomen normal to inspection Psychiatric A+Ox3, euthymic affect Genitourinary OB Exam Abdomen: + fundal height Discharge Data Consultations 02/02/24 11:21 Consult Anesthesiology Stat Procedures Performed Operation Date: 02/02/24 13:10 <No data on this case meets the specified criteria> Hospital Course (1) care and examination: (2) HELLP syndrome: Plan Continuing to improve Encourage ambulation Pain control Anticipate dc today Supervising Physician Co-Signing Physician Notes Resident Physician Supervision Note: I interviewed and examined the patient. Discussed with Dr. Christiansen and agree with findings and plan as documented in the note. Any exceptions or clarifications are listed here: POD3 s/p repeat for HELLP syndrome. She is feeling well, labs have trended towards normal. Desires DC home. Advise office visit in 1 week for recheck of symptoms, BP check, incision check, could consider labs if necessary. Reviewed DC instructions. Documented By: Lulu Moreau DO Coding Level of Care Code None Diagnoses care and examination Z39.2 HELLP syndrome O14.20
== END 2024-02-05 10:45 | disposition home or self-care (01) | DRG 788 ==
LOC: OPB 11:15 → 4S1 11:17 → 4E2 02-04 09:14